=== PATIENT | male | born 1945 | race Caucasian/White ===

== ENCOUNTER → 2017-04-30 | Outpatient (CLI) | payer OTHER ==
[~2017-04-30] MED LIST: ACET-1256 PO; ASPI81TA28 PO; CALCIUM MAG VIT D PO; METO25TA3 PO; MULT-506 PO; OMEG10007 PO; VITA1CAP4 PO
[2017-04-30 14:39] VITALS: BP 112/73; PULSE 57; TEMP 36.8; O2SAT 96
--- NOTE | 2017-04-30 16:03 | Radiation Oncology Follow-Up ---
Radiation Oncology Follow-Up Date of Visit Apr 30, 2017. Reason For Visit One-month follow-up in cancer survivorship care plan Radiation Completion Date 03/21/18 Diagnosis (1) Prostate cancer Status: Acute Onset Date: 08/19/2015 Location: both lobes of the prostate Histology Subtype: adenocarcinoma Stage: ll Permanent Comment: Rising PSA with a benign biopsy 06/12/2004 Rising PSA, pretreatment PSA, 7.75 Status post ultrasound-guided biopsies 08/19/2015 Adenocarcinoma of the prostate Na 3+3 and 3+4 Status post robotic-assisted laparoscopic prostatectomy and lymph node biopsy [place] 4+3 with tertiary 5 pT2c pN0 M0 Post prostatectomy rising PSA to 0.07 on 11/14/2016 Status post completion of salvage radiation therapy 03/21/2017. He received 6840 cGy Last Edited By: Pamela Ely on Mar 29, 2017 14:47 History of Present Illness Mr. Bean has a history of transient PSAs. The patient did have an elevated PSA in 2004 which prompted a biopsy of the prostate gland on 06/13/2004 which was negative. More recently, the patient presented again with an elevated PSA of 10.6 on 06/13/2015. Dr. Glynn recommended a repeat transrectal ultrasound- guided biopsy of the prostate gland which revealed prostate adenocarcinoma Na 3+3 and Na 3+4 in 3/13 cores. The patient elected to undergo a radical prostatectomy with bilateral lymph node sampling by Dr. Spann on 2015. Pathology revealed prostatic ductal adenocarcinoma and acinar adenocarcinoma that was [place] 4+3 involving bilateral lobes (pT2c). The pathology revealed no evidence of extracapsular extension, seminal vesicle invasion were positive margins. There were was noted to be focal perineural invasion. 3 lymph nodes were resected in the right pelvis and left pelvis each and were negative for metastatic carcinoma. The patient did have a follow-up PSA that was 0.03 on 02/20/2016, 0.03 on 05/16/2016 and 0.07 on 11/14/2016. Dr. Glynn referred the patient to us for consideration of salvage radiation therapy. Currently, the patient in relatively well overall. He denies any urinary incontinence or any issues with the following surgery. His urinary IPSS score is 8/35. His EPIC QoL score is 4/60. He has used Viagra and is currently using Trimix injections for erections. He denies any blood per rectum or history of inflammatory bowel disease. No other complaints. He began hormonal suppression. Salvage radiation therapy was then added. Radiation was completed 03/21/2017. He received 6840 cGy Interim History He's been doing well over this past month in regards to his urinary status. Today given AUA score 10. At the end of treatment he had an AUA score of 8. He continues on hormone suppression. A plan was for 12 months. He completed and expanded prostate cancer index composite for clinical practice and gave a score of 0 of 12 and urinary incontinence symptoms. He gave a score of 2 of 12 and urinary irritation symptoms. He gave a score of 2 of 12 bowel symptoms. He gave a score of 4 of 12 sexual symptoms. He gave a score of one of 12 and hormonal vitality symptoms. His total was 9 of 60. Allergies Coded Allergies: No Known Allergies (Unverified , 12/06/16) Home Medications Scheduled Aspirin (Aspirin Ec), 81 MG PO BID Fish Oil (Blanchard-3), 350 MG PO DAILY Metoprolol Succ (Toprol Xl) (Toprol-Xl), 25 MG PO BID Multivitamin (Multivitamin), 1 TAB PO DAILY Vitamin E (E 1000), 1 CAP PO DAILY [[id number] D], 1 TAB PO DAILY Scheduled PRN Acetaminophen (Tylenol), 2 TAB PO Q6 PRN for Moderate Pain Review of Systems Gastrointestinal: Symptoms: WNL GI Comments: has 4 BM s a day and gas Oral: Symptoms: No Problems Respiratory: Symptoms: WNL Urinary: Symptoms: Frequency Comments: every 2 hr, some urgency Skin: Symptoms: No Problems Physical Exam Vital Signs Date Time Temp Pulse Resp B/P (MAP) Pulse Ox O2 Delivery O2 Flow Rate FiO2 04/30/17 14:39 36.8 57 18 112/73 96 Fatigue: None General Appearance: no apparent distress Eyes: normal inspection, EOMI ENT: normal ENT inspection, hearing grossly normal Respiratory/Chest: lungs clear, no respiratory distress, no accessory muscle use Cardiovascular: regular rate, rhythm, no gallop, no murmur Abdomen: non tender, soft Extremities: no pedal edema Neurologic/Psychiatric: no motor/sensory deficits, alert, normal mood/affect Pain Management Patient Reports Pain: No Pain Location: None Patient Preferred Pain Scale: 0 - 10 Initial Pain Intensity: 0.0 Pain Management Plan He denied pain therefore requires no pain management. Laboratory Laboratory Results: pending Pathology Pathology Results: not applicable Imaging Imaging Studies: not applicable Assessment & Plan Plan: He was also seen today by Dr. Sharma. A PSA was drawn. He'll be notified as to results. We completed a cancer survivorship care plan. A copy of the document was given to the patient. He was given a survivorship booklet. He'll continue follow-up with his primary care physician and Dr. Glynn. We asked him to return to our office in 6 months. He will call if he has any questions or concerns in the interim. Assessment & Plan (Attending) ADDENDUM: I agree with note created by Pamela Ely PA-C. I reviewed the patient's chart and information with her. I have examined and evaluated the patient. I reviewed relevant clinical information and answered the patient's and /or family's questions. CONSULTING UTILITY FORESTER Total Time In Follow-Up I spent 20 minutes speaking to the patient and performing examination. I spent 20 minutes reviewing information, preparing the survivorship document, and completing this note. [place] Total Time (Attending) In Follow-Up I spent 15 minutes examining and counseling the patient. CONSULTING UTILITY FORESTER Copy To Florin Serrano M.D.; Gudelia Glynn MD
== END | disposition home or self-care (01) ==
LOC: C.ONC 14:29
PROVIDERS: ATTEND Physician Assistant Medical
DX: Z08 Encounter for follow-up examination after completed treatment for malignant neoplasm (principal); Z92.3 Personal history of irradiation; Z85.46 Personal history of malignant neoplasm of prostate

== ENCOUNTER 2020-09-01 16:59 | Inpatient (IN) ==
--- NOTE | 2020-09-01 17:37 | Emergency Department Note ---
Impression & Plan Dizziness, Atrial flutter ED Provider Note NAME: KAREN WALTER AGE: 75 SEX: M : 1945 ARRIVES VIA: Walk-In INFORMANT: Patient, ED PROVIDER(S): Sujit Barnett MD CHIEF COMPLAINT: Abnormal EKG HPI: This 75-year-old male sent in by his primary care physician over concerns about an abnormal EKG. The patient reports he has felt dizzy for the past 2 to 3 weeks. He reports anytime he stands up and moves that the dizziness follows. He reports a history of being diagnosed with atrial fibrillation last February. He was placed on apixaban for the atrial fibrillation which he has not missed any doses of. He denies any true chest pain or shortness of breath. He reports movement makes the dizziness worse nothing seems to make the dizziness better. He has not taken anything for the dizziness. ROS: See above HPI for pertinent positives & negatives. A total of 10 systems reviewed and were otherwise negative. PAST MEDICAL HISTORY: See Below PAST SURGICAL HISTORY: See Below FAMILY HISTORY: See Below SOCIAL HISTORY: See Below HOME MEDICATIONS: See Below ALLERGIES: See Below VITALS: See Below PHYSICAL EXAMINATION: VITAL SIGNS - Vital signs and nursing notes were reviewed. GENERAL - 75-year-old male appearing stated age who is in no acute distress. Communicates well with provider and answers questions appropriately. SKIN - Without rashes. HEAD - NC/AT. EYES - PERRL with EOMI bilaterally. Sclera anicteric. Palpebral conjunctiva pink and moist with no injection noted. EARS - No deformities of external structures noted on gross examination bilaterally. NOSE - Midline and without cyanosis. No epistaxis or purulent drainage noted. Septum midline without deviation or septal hematoma noted. MOUTH/OROPHARYNX - Without perioral cyanosis. Buccal mucosa pink and moist and without leukoplakia. Tongue midline with equal elevation of palate bilaterally. No tonsillar hypertrophy, erythema, or exudates noted. NECK - Neck with FROM. Supple to palpation. No nuchal rigidity. LUNGS - Chest wall symmetric without accessory muscle use, intercostals retractions, or central cyanosis. Normal vesicular breath sounds CTA B/L. No wheezes, rales, or rhonchi appreciated. CARDIAC - RRR with S1/S2. No murmur, rubs, or gallops appreciated. ABDOMEN - Abdominal contour without pulsations or visible masses. BS normoactive all four quadrants. No tenderness, palpable masses, hepatosplenomegaly, or ascites noted. EXTREMITIES - No clubbing or peripheral cyanosis. No pretibial edema present. +3/5 radial, posterior tibial, and dorsalis pedis pulses palpated throughout. +5/5 strength noted in UE/LE bilaterally. NEUROLOGIC - Cranial nerves II through XII grossly intact. Sensory intact to light touch throughout. Patellar reflexes +2/4. PSYCH - A&Ox3 and cooperates fully with examiner. Pt is very pleasant and interacts well with examiner. MEDICAL DECISION MAKING: Patient was seen and evaluated as above in room C2. Review was performed of nursing notes and vital signs. I did review pertinent previous visits and patient history. After obtaining a thorough history and physical examination the above work up was performed. This 75-year-old male who presents emergency department complaining of what appears to be a new onset atrial flutter along with dizziness. The patient denies any chest pain or shortness of breath however his troponin is elevated. Based on this I did discuss the case with the hospitalist service who did agree to meet the patient. Patient is in agreement with treatment plan. An order was placed for continuous cardiac monitoring. The monitor shows a rate of 57 with A flutter rhythm. The patient was evaluated during a period of high volume and high acuity during the global COVID-19 pandemic, and that diagnosis was suspected/considered upon their initial presentation. Their evaluation, treatment and testing was consis tent with current guidelines for patients who present with complaints or symptoms that may be related to COVID-19. Patient was seen while provider was wearing PPE. Triage Nursing notes reviewed. Prior medical records reviewed Vital Signs: reviewed and remarkable for no significant abnormalities Differential diagnosis: Cardiac ischemia, aortic dissection, pulmonary embolism, pneumothorax, pneumonia, pericarditis, myocarditis, esophageal rupture, GERD, cholecystitis, pancreatitis, musculoskeletal, as well as other pathologies. ER treatment provided: See below Diagnostics interpreted by me: ECG: EKG shows atrial flutter T wave abnormality in the inferior leads T wave inversions in the anterolateral leads. QTC is 440 ventricular rate of 61 EKG is compared to 02/23/2020 and a flutter has replaced sinus rhythm. Laboratory studies: As stated above and show below. 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), no residual issues 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 Surgical History H/O shoulder surgery LEFT History of cardiac cath 1986 History of colonoscopy History of cystoscopy History of prostatectomy History of tooth extraction Hx of vasectomy [place] teeth removed Family History Grandfather (Maternal) Family hx of colon cancer Other No family history of adverse response to anesthesia Social History Smoking Status: Never smoker Second Hand Exposure: No; Hx Alcohol Use: Yes Alcohol type: hard liquor Hx Substance Use: No Preferred Language: [place] Communication Ability: Effective 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 Beliefs That Will Affect Care: None Current Living Situation: Alone Other Information That Helps Us Care for You: No Feels Safe at Home: Yes Safety Concerns: Feels Safe At This Time Assistive Devices: Glasses and Hearing Aid - Bilateral Allergies Allergies Allergy/AdvReac Type Severity Reaction Status Date / Time No Known Allergies Allergy Verified 09/01/20 17:19 Home Meds Home Medications Medication Instructions Recorded Confirmed Eliquis 5 mg PO BID 02/23/20 09/01/20 atorvastatin 20 mg PO QAM 02/23/20 09/01/20 calcium citrate 200 mg PO QAM 02/23/20 09/01/20 docusate sodium 100 mg PO QAM 02/23/20 09/01/20 folic acid 2 mg PO QAM 02/23/20 09/01/20 metoprolol succinate [Toprol XL] 50 mg PO QAM 02/23/20 09/01/20 multivitamin 1 tab PO QAM 02/23/20 09/01/20 omeprazole 20 mg PO BID 02/23/20 09/01/20 fiber 2 tab PO QAM 03/17/20 09/01/20 magnesium oxide 400 mg PO QAM 03/17/20 09/01/20 lisinopril 5 mg PO DAILY 09/01/20 09/01/20 oxybutynin chloride 10 mg PO DAILY 09/01/20 09/01/20 Results & Data (ED) Vital Signs Vital Signs - 24 hr 09/01/20 17:02 09/01/20 18:13 09/01/20 18:16 Temperature 36.3 C L Temperature Source Temporal Artery Scan Pulse Rate - Lying Pulse Rate - Sitting Pulse Rate - Standing Pulse Rate 66 56 L 61 Pulse Rate from SpO2 Sensor 55 L 58 L Pulse Rhythm Respiratory Rate 18 20 16 Blood Pressure - Lying Blood Pressure - Sitting Blood Pressure- Standing Blood Pressure 160/88 H 145/83 H Blood Pressure Mean 112 103 Pulse Oximetry 95 96 95 Oxygen Delivery Method Room Air Sepsis Recent Fever Within 48 Hours No Sepsis New/Unexplained Change in Mental Status N/A Sepsis Action Taken by Nursing No Action Required 09/01/20 18:20 09/01/20 18:28 09/01/20 18:29 Temperature Temperature Source Pulse Rate - Lying 58 L Pulse Rate - Sitting 65 Pulse Rate - Standing 64 Pulse Rate 61 58 L 58 L Pulse Rate from SpO2 Sensor 61 56 L Pulse Rhythm Regular Respiratory Rate 17 16 20 Blood Pressure - Lying 147/81 H Blood Pressure - Sitting 147/84 H Blood Pressure- Standing 133/105 H Blood Pressure 147/81 H Blood Pressure Mean 103 Pulse Oximetry 96 96 95 Oxygen Delivery Method Room Air Sepsis Recent Fever Within 48 Hours Sepsis New/Unexplained Change in Mental Status Sepsis Action Taken by Nursing 09/01/20 18:30 09/01/20 18:31 09/01/20 19:00 Temperature Temperature Source Pulse Rate - Lying Pulse Rate - Sitting Pulse Rate - Standing Pulse Rate 56 L 58 L 49 L Pulse Rate from SpO2 Sensor 62 60 53 L Pulse Rhythm Respiratory Rate 15 20 17 Blood Pressure - Lying Blood Pressure - Sitting Blood Pressure- Standing Blood Pressure 147/84 H 133/105 H 146/71 H Blood Pressure Mean 105 114 96 Pulse Oximetry 96 97 95 Oxygen Delivery Method Sepsis Recent Fever Within 48 Hours Sepsis New/Unexplained Change in Mental Status Sepsis Action Taken by Nursing 09/01/20 19:30 Temperature Temperature Source Pulse Rate - Lying Pulse Rate - Sitting Pulse Rate - Standing Pulse Rate Pulse Rate from SpO2 Sensor 65 Pulse Rhythm Respiratory Rate Blood Pressure - Lying Blood Pressure - Sitting Blood Pressure- Standing Blood Pressure Blood Pressure Mean Pulse Oximetry 96 Oxygen Delivery Method Sepsis Recent Fever Within 48 Hours Sepsis New/Unexplained Change in Mental Status Sepsis Action Taken by Nursing Laboratory Data Result diagrams: 09/01/20 18:28 09/01/20 18:28 Lab Results 09/01/20 09/01/20 09/01/20 Range/Units 18:28 18:28 18:28 WBC 5.89 (4.8-10.8) K/uL RBC 4.11 L (4.7-6.1) M/uL Hgb 13.2 L (14.0-18.0) g/dL Hct 38.9 L (42-52) % MCV 94.6 (80-100) fL MCH 32.1 (25-34) pg MCHC 33.9 (32-36) g/dL RDW Std Deviation 48.8 H (36.4-46.3) fL RDW Coeff of Tip 14.1 (11.5-14.5) % Plt Count 152 (130-400) K/uL MPV 9.8 (7.4-10.4) fL Immature Gran % (Auto) 0.2 % Neut % (Auto) 63.9 % Lymph % (Auto) 22.1 % [place] % (Auto) 12.1 % Eos % (Auto) 1.5 % Baso % (Auto) 0.2 % Neut # (Auto) 3.77 (1.4-6.5) K/uL Lymph # (Auto) 1.30 (1.2-3.4) K/uL [place] # (Auto) 0.71 H (0.11-0.59) K/uL Eos # (Auto) 0.09 (0-0.5) K/uL Baso # (Auto) 0.01 (0-0.2) K/uL Immature Gran # (Auto) 0.01 (0.00-0.02) K/uL PT 11.0 (9.0-12.0) Seconds INR 1.1 (0.9-1.1) APTT 27.8 (21.0-31.0) Seconds PTT Ratio 1.1 Sodium 138 (136-145) mmol/L Potassium 4.2 (3.5-5.1) mmol/L Chloride 108 H (98-107) mmol/L Carbon Dioxide 24 (21-32) mmol/L Anion Gap 6.0 (3-11) BUN 21 H (7-18) mg/dl Creatinine 1.10 (0.6-1.4) mg/dl Est Cr Clr Drug Dosing 62.7 ml/min Est GFR ( Amer) 75.2 ml/min Est GFR (Non-Af Amer) 64.9 ml/min BUN/Creatinine Ratio 19.5 (10-20) Glucose 87 (70-99) mg/dl Calcium 9.0 (8.5-10.1) mg/dl Magnesium (1.8-2.4) mg/dl Total Bilirubin 0.8 (0.2-1) mg/dl AST 66 H (15-37) U/L ALT 119 H (12-78) U/L Alkaline Phosphatase 64 (45-117) U/L Total Creatine Kinase 75 (39-308) U/L CK-MB (CK-2) 2.5 (0.5-3.6) ng/ml CK/CKMB % Calc 3.3 H (0-3.0) Troponin I 0.447 H* (0-0.045) ng/ml Total Protein 6.2 L (6.4-8.2) gm/dl Albumin 3.6 (3.4-5.0) gm/dl Globulin 2.6 (2.5-4.0) gm/dl Albumin/Globulin Ratio 1.4 (0.9-2) Lipase 81 (73-393) U/L TSH (0.300-4.500) uIu/ml Lyme Disease IgG Ab (Negative) Lyme Disease IgM Ab (Negative) COVID-19 Eval Order SARS-CoV-2 (PCR) (Negative) 09/01/20 09/01/20 09/01/20 Range/Units 18:28 18:33 18:33 WBC (4.8-10.8) K/uL RBC (4.7-6.1) M/uL Hgb (14.0-18.0) g/dL Hct (42-52) % MCV (80-100) fL MCH (25-34) pg MCHC (32-36) g/dL RDW Std Deviation (36.4-46.3) fL RDW Coeff of Tip (11.5-14.5) % Plt Count (130-400) K/uL MPV (7.4-10.4) fL Immature Gran % (Auto) % Neut % (Auto) % Lymph % (Auto) % [place] % (Auto) % Eos % (Auto) % Baso % (Auto) % Neut # (Auto) (1.4-6.5) K/uL Lymph # (Auto) (1.2-3.4) K/uL [place] # (Auto) (0.11-0.59) K/uL Eos # (Auto) (0-0.5) K/uL Baso # (Auto) (0-0.2) K/uL Immature Gran # (Auto) (0.00-0.02) K/uL PT (9.0-12.0) Seconds INR (0.9-1.1) APTT (21.0-31.0) Seconds PTT Ratio Sodium (136-145) mmol/L Potassium (3.5-5.1) mmol/L Chloride (98-107) mmol/L Carbon Dioxide (21-32) mmol/L Anion Gap (3-11) BUN (7-18) mg/dl Creatinine (0.6-1.4) mg/dl Est Cr Clr Drug Dosing ml/min Est GFR ( Amer) ml/min Est GFR (Non-Af Amer) ml/min BUN/Creatinine Ratio (10-20) Glucose (70-99) mg/dl Calcium (8.5-10.1) mg/dl Magnesium 2.1 (1.8-2.4) mg/dl Total Bilirubin (0.2-1) mg/dl AST (15-37) U/L ALT (12-78) U/L Alkaline Phosphatase (45-117) U/L Total Creatine Kinase (39-308) U/L CK-MB (CK-2) (0.5-3.6) ng/ml CK/CKMB % Calc (0-3.0) Troponin I (0-0.045) ng/ml Total Protein (6.4-8.2) gm/dl Albumin (3.4-5.0) gm/dl Globulin (2.5-4.0) gm/dl Albumin/Globulin Ratio (0.9-2) Lipase (73-393) U/L TSH 1.800 (0.300-4.500) uIu/ml Lyme Disease IgG Ab (Negative) Lyme Disease IgM Ab (Negative) COVID-19 Eval Order Covid19 at [facility] SARS-CoV-2 (PCR) NEGATIVE (Negative) 09/01/20 Range/Units 20:05 WBC (4.8-10.8) K/uL RBC (4.7-6.1) M/uL Hgb (14.0-18.0) g/dL Hct (42-52) % MCV (80-100) fL MCH (25-34) pg MCHC (32-36) g/dL RDW Std Deviation (36.4-46.3) fL RDW Coeff of Tip (11.5-14.5) % Plt Count (130-400) K/uL MPV (7.4-10.4) fL Immature Gran % (Auto) % Neut % (Auto) % Lymph % (Auto) % [place] % (Auto) % Eos % (Auto) % Baso % (Auto) % Neut # (Auto) (1.4-6.5) K/uL Lymph # (Auto) (1.2-3.4) K/uL [place] # (Auto) (0.11-0.59) K/uL Eos # (Auto) (0-0.5) K/uL Baso # (Auto) (0-0.2) K/uL Immature Gran # (Auto) (0.00-0.02) K/uL PT (9.0-12.0) Seconds INR (0.9-1.1) APTT (21.0-31.0) Seconds PTT Ratio Sodium (136-145) mmol/L Potassium (3.5-5.1) mmol/L Chloride (98-107) mmol/L Carbon Dioxide (21-32) mmol/L Anion Gap (3-11) BUN (7-18) mg/dl Creatinine (0.6-1.4) mg/dl Est Cr Clr Drug Dosing ml/min Est GFR ( Amer) ml/min Est GFR (Non-Af Amer) ml/min BUN/Creatinine Ratio (10-20) Glucose (70-99) mg/dl Calcium (8.5-10.1) mg/dl Magnesium (1.8-2.4) mg/dl Total Bilirubin (0.2-1) mg/dl AST (15-37) U/L ALT (12-78) U/L Alkaline Phosphatase (45-117) U/L Total Creatine Kinase (39-308) U/L CK-MB (CK-2) (0.5-3.6) ng/ml CK/CKMB % Calc (0-3.0) Troponin I (0-0.045) ng/ml Total Protein (6.4-8.2) gm/dl Albumin (3.4-5.0) gm/dl Globulin (2.5-4.0) gm/dl Albumin/Globulin Ratio (0.9-2) Lipase (73-393) U/L TSH (0.300-4.500) uIu/ml Lyme Disease IgG Ab Negative (Negative) Lyme Disease IgM Ab Negative (Negative) COVID-19 Eval Order SARS-CoV-2 (PCR) (Negative) Imaging Data Radiologist's Impression: Chest X-Ray 09/01/20 17:34 XR chest 1V portable HISTORY: 75 years-old Male Chest Pain acute atypical chest pain COMPARISON: Chest radiograph 03/21/2020 TECHNIQUE: Portable AP view of the chest FINDINGS: Cardiac silhouette is enlarged. Single lead left subclavian pacer/AICD. No pneumothorax, pleural effusion, airspace consolidation or overt pulmonary edema. Left shoulder total joint arthroplasty. Degenerative changes of the spine and right shoulder. IMPRESSION: No acute process. ACT 112: Negative or not required by law. The above report was generated using voice recognition software. It may contain grammatical, syntax or spelling errors. Electronically signed by: Car Riddle M.D. 09/01/2020 5:52 PM Discharge Plan Visit Data Chief Complaint: Cardiac Assessment Stated Complaint: IRREGULAR HEART BEAT- DOC REF ED Provider: Sujit Barnett Discharge Problem: Dizziness, Atrial flutter Patient Disposition: Admitted As Inpatient Discharge Instructions Interventions: ED Discharge Assessment Last Done: 09/01/20 21:58 Discharge Problem: Atrial flutter Qualifiers: Atrial flutter type: typical Qualified Code(s): I48.3 - Typical atrial flutter
--- NOTE | 2020-09-01 17:53 | XRay Report ---
XR chest 1V portable HISTORY: 75 years-old Male Chest Pain acute atypical chest pain COMPARISON: Chest radiograph 03/21/2020 TECHNIQUE: Portable AP view of the chest FINDINGS: Cardiac silhouette is enlarged. Single lead left subclavian pacer/AICD. No pneumothorax, pleural effu tyson, airspace consolidation or overt pulmonary edema. Left shoulder total joint arthroplasty. Degene rative changes of the spine and right shoulder. IMPRESSION: No acute process. ACT 112: Negative or not required by law. The above report was generated using voice recognition software. It may contain grammatical, syntax o r spelling errors. Electronically signed by: Car Riddle M.D. 09/01/2020 5:52 PM
[2020-09-01 18:37] LABS: Basophils # (auto) 0.01 K/uL (0-0.2); Basophils % (auto) 0.2 %; Eosinophils # (auto) 0.09 K/uL (0-0.5); Eosinophils % (auto) 1.5 %; Hematocrit (blood only) 38.9 % (42-52); Hemoglobin 13.2 g/dL (14.0-18.0); Immature Granulocytes # (auto) 0.01 K/uL (0.00-0.02); Immature Granulocytes % (auto) 0.2 %; Lymphocytes % (auto) 22.1 %; Mean Corpuscular Hemoglobin 32.1 pg (25-34); Mean Corpuscular Hgb Conc 33.9 g/dL (32-36); Mean Corpuscular Volume 94.6 fL (80-100); Mean Platelet Volume 9.8 fL (7.4-10.4); Monocytes # (auto) 0.71 K/uL (0.11-0.59); Monocytes % (auto) 12.1 %; Neutrophils # (auto) 3.77 K/uL (1.4-6.5); Neutrophils % (auto) 63.9 %; Platelet Count 152 K/uL (130-400); RDW Coefficient of Variation 14.1 % (11.5-14.5); RDW Standard Deviation 48.8 fL (36.4-46.3); Red Blood Count 4.11 M/uL (4.7-6.1); White Blood Count 5.89 K/uL (4.8-10.8)
[2020-09-01 18:49] LABS: INR 1.1 (0.9-1.1); Partial Thromboplastin Ratio 1.1; Partial Thromboplastin Time 27.8 Seconds (21.0-31.0)
[2020-09-01 18:54] LABS: Albumin Level 3.6 gm/dl (3.4-5.0); BUN Creatinine Ratio 19.5 (10-20); Creatinine Clr Calc Pharmacy 62.7 ml/min; Est GFR (African American) 75.2 ml/min; Est GFR (Non-African American) 64.9 ml/min; Potassium 4.2 mmol/L (3.5-5.1)
[2020-09-01 19:04] LABS: Albumin Globulin Ratio 1.4 (0.9-2); Bilirubin,Total 0.8 mg/dl (0.2-1); Creatine Kinase MB 2.5 ng/ml (0.5-3.6); Globulin 2.6 gm/dl (2.5-4.0); Total Protein 6.2 gm/dl (6.4-8.2); Troponin I 0.447 ng/ml (0-0.045)
--- NOTE | 2020-09-01 20:09 | History & Physical Report ---
Date of Service September 01, 2020 Assessment & Plan (1) Lightheadedness: With fatigue symptoms ? Secondary to symptomatic slow A. fib, hx PAF on Eliquis Rule out tickborne infection given abnormal LFTs Orthostatic vitals done at the ER were negative Troponin elevation possibly from elevated BP upon arrival at the ER history of hypertrophic nonobstructive cardiomyopathy history NSVT, hx prophylactic ICD hyperlipidemia on statin Rx moderate mitral regurgitation history thromboembolic CVA prostate cancer status post surgery/radiation chronic anemia, hemoglobin at baseline past tobacco abuse OBS PCU Hold beta-alejandro for now ICD interrogation Cardiology consult Re: Recurrent A. fib, bradycardia Follow troponin TTE if with progression Titrate lisinopril while beta-alejandro on hold for BP control Tickborne illness panel Follow LFTs, liver ultrasound if with progression DVT prophylaxis. Eliquis Full code Text document was generated using Vend[employer]ize voice recognition software. It may contain grammatical or spelling errors. Kindly contact undersigned for clarification of any documentation item in question. History of Present Illness Chief Complaint: Lightheadedness, weakness Primary Care Provider: Chucky Kim DO History obtained from patient and records. Medical history significant for PAF on Eliquis, history of hypertrophic nonobstructive cardiomyopathy, history NSVT, hx prophylactic ICD, hypertension, hyperlipidemia, moderate MR, history thromboembolic CVA, prostate cancer status post surgery/radiation, chronic anemia (baseline hemoglobin 13), past tobacco abuse. Last confinement [facility] January 2020 acute right frontoparietal embolic stroke presenting as transient left facial droop and dysarthria. No TPA, no vascular intervention required for stroke. Transient A. fib noted during confinement. Patient discharged on Eliquis. 8 months history of intermittent episodes of lightheadedness which patient thinks might be related to movement. About 2 episodes per month as per patient. Occasional generalized weakness. Denies depression. Denies chest pain, cough, palpitations, shortness of breath, abdominal pain, fluid retention. No spinning sensation, no headache. Patient has to stand steady initially on getting up for fear of falling. Ticks where patient lives although patient does not recall recent tick bites. The last 2 weeks patient noted almost daily symptoms of lightheadedness and generalized weakness. No recent changes in medication regimen as per patient. No recent COVID-19 contacts. Patient seen at PCP's office today. Cardiac rate 50s. EKG showed A. fib with slow ventricular response with T wave abnormalities inferior and anterior leads as per documentation. Patient sent to the ER for evaluation. Initial SBP upon arrival at the ER 160s. Medical History as above Surgical History : Hemorrhoidectomy, ICD, prostatectomy with pelvic lymphadenectomy, shoulder surgery Family History : Colon cancer, heart disease, stroke Personal/Social history : Past tobacco abuse, daily alcohol intake (denies abuse), retired from [employer] service Allergies Allergy/AdvReac Type Severity Reaction Status Date / Time No Known Allergies Allergy Verified 09/01/20 17:19 Home Medications Medication Instructions Recorded Confirmed Type Eliquis 5 mg PO BID 02/23/20 09/01/20 History atorvastatin 20 mg PO QAM 02/23/20 09/01/20 History calcium citrate 200 mg PO QAM 02/23/20 09/01/20 History docusate sodium 100 mg PO QAM 02/23/20 09/01/20 History folic acid 2 mg PO QAM 02/23/20 09/01/20 History metoprolol succinate [Toprol XL] 50 mg PO QAM 02/23/20 09/01/20 History multivitamin 1 tab PO QAM 02/23/20 09/01/20 History omeprazole 20 mg PO BID 02/23/20 09/01/20 History fiber 2 tab PO QAM 03/17/20 09/01/20 History magnesium oxide 400 mg PO QAM 03/17/20 09/01/20 History lisinopril 5 mg PO DAILY 09/01/20 09/01/20 History oxybutynin chloride 10 mg PO DAILY 09/01/20 09/01/20 History Past Med/Surg History Medical History Atrial fibrillation paroxysmal, new diagnosis (reason for Eliquis) CKD (chronic kidney disease) stage III Diverticulitis Hematuria History of prostate cancer s/p surgery/xrt (2018) Hyperlipidemia Hypertension Hypertrophic cardiomegaly hypertrophic non-obstructive cardiomyopathy ICD (implantable cardioverter-defibrillator) in place ICD/PPM, implanted 2018, [employer], last check 01/06/20 Mitral regurgitation moderate to severe MR per 02/06/20 echo Stroke 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), no residual issues 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 Surgical History H/O shoulder surgery LEFT History of cardiac cath 1987 History of colonoscopy History of cystoscopy History of prostatectomy History of tooth extraction Hx of vasectomy [place] teeth removed Family History Grandfather (Maternal) Family hx of colon cancer Other No family history of adverse response to anesthesia Social History Smoking Status: Never smoker Second Hand Exposure: No; Hx Alcohol Use: Yes Alcohol type: hard liquor Hx Substance Use: No Preferred Language: Azeri Communication Ability: Effective Traffic Circuit Engineer Required: No Beliefs That Will Affect Care: None Current Living Situation: Alone Other Information That Helps Us Care for You: No Feels Safe at Home: Yes Safety Concerns: Feels Safe At This Time Assistive Devices: Glasses and Hearing Aid - Bilateral Review of Systems Review of Systems: As per HPI, all 10 systems reviewed, all other ROS negative Physical Exam Physical Exam: GENERAL: Comfortable, pleasant, no respiratory distress SKIN: Normal color, warm HEENT: [place] palpebral conjunctivae, no ptosis, dry buccal mucosa NECK : Supple, no tenderness CHEST : CTA, no tenderness HEART : Bradycardic, no obvious murmurs ABDOMEN: No distention, nontender EXTREMITIES : No LE swelling/tenderness, no other conspicuous deformities noted NEUROLOGIC : Coherent, no facial asymmetry, no other gross focality Results & Data Results & Data ([facility]) Vital Signs (Past 12 Hours) Vital Signs Temp Pulse Resp BP Pulse Ox 09/01/20 19:00 49 L 17 146/71 H 95 09/01/20 18:31 58 L 20 133/105 H 97 09/01/20 18:30 56 L 15 147/84 H 96 09/01/20 18:29 58 L 20 147/81 H 95 09/01/20 18:28 58 L 16 96 09/01/20 18:20 61 17 96 09/01/20 18:16 61 16 95 09/01/20 18:13 56 L 20 145/83 H 96 09/01/20 17:02 36.3 C L 66 18 160/88 H 95 Laboratory Results Laboratory Results WBC 5.89 K/uL (4.8-10.8) 09/01/20 18:28 RBC 4.11 M/uL (4.7-6.1) L 09/01/20 18: Hgb 13.2 g/dL (14.0-18.0) L 09/01/20 18: Hct 38.9 % (42-52) L 09/01/20 18: MCV 94.6 fL (80-100) 09/01/20 18: MCH 32.1 pg (25-34) 09/01/20 18: MCHC 33.9 g/dL (32-36) 09/01/20 18: RDW Std Deviation 48.8 fL (36.4-46.3) H 09/01/20 18: RDW Coeff of Tip 14.1 % (11.5-14.5) 09/01/20 Plt Count 152 K/uL (130-400) 09/01/20 18: MPV 9.8 fL (7.4-10.4) 09/01/20 18: Immature Gran % (Auto) 0.2 % 09/01/20 18: Neut % (Auto) 63.9 % 09/01/20 18: Lymph % (Auto) 22.1 % 09/01/20 18: [place] % (Auto) 12.1 % 09/01/20 18: Eos % (Auto) 1.5 % 09/01/20 18: Baso % (Auto) 0.2 % 09/01/20 18: Neut # (Auto) 3.77 K/uL (1.4-6.5) 09/01/20 18: Lymph # (Auto) 1.30 K/uL (1.2-3.4) 09/01/20 18: [place] # (Auto) 0.71 K/uL (0.11-0.59) H 09/01/20 18: Eos # (Auto) 0.09 K/uL (0-0.5) 09/01/20 18: Baso # (Auto) 0.01 K/uL (0-0.2) 09/01/20 18: Immature Gran # (Auto) 0.01 K/uL (0.00-0.02) 09/01/20 18: PT 11.0 Seconds (9.0-12.0) 09/01/20 18: INR 1.1 (0.9-1.1) 09/01/20 18: APTT 27.8 Seconds (21.0-31.0) 09/01/20 18: PTT Ratio 1.1 09/01/20 18: Sodium 138 mmol/L (136-145) 09/01/20 18: Potassium 4.2 mmol/L (3.5-5.1) 09/01/20 18: Chloride 108 mmol/L (98-107) H 09/01/20 18: Carbon Dioxide 24 mmol/L (21-32) 09/01/20 18: Anion Gap 6.0 (3-11) 09/01/20 18: BUN 21 mg/dl (7-18) H 09/01/20 18: Creatinine 1.10 mg/dl (0.6-1.4) 09/01/20 18: Est Cr Clr Drug Dosing 62.7 ml/min 09/01/20 18: Est GFR ( Amer) 75.2 ml/min 09/01/20 18: Est GFR (Non-Af Amer) 64.9 ml/min 09/01/20 18: BUN/Creatinine Ratio 19.5 (10-20) 09/01/20 18: Glucose 87 mg/dl (70-99) 09/01/20 18: Calcium 9.0 mg/dl (8.5-10.1) 09/01/20 18: Total Bilirubin 0.8 mg/dl (0.2-1) 09/01/20 18: AST 66 U/L (15-37) H 09/01/20 18:28 ALT 119 U/L (12-78) H 09/01/20 18:28 Alkaline Phosphatase 64 U/L (45-117) 09/01/20 18: Total Creatine Kinase 75 U/L (39-308) 09/01/20 18: CK-MB (CK-2) 2.5 ng/ml (0.5-3.6) 09/01/20 18: CK/CKMB % Calc 3.3 (0-3.0) H 09/01/20 18: Troponin I 0.447 ng/ml (0-0.045) H* 09/01/20 18:28 Total Protein 6.2 gm/dl (6.4-8.2) L 09/01/20 18:28 Albumin 3.6 gm/dl (3.4-5.0) 09/01/20 18:28 Globulin 2.6 gm/dl (2.5-4.0) 09/01/20 18:28 Albumin/Globulin Ratio 1.4 (0.9-2) 09/01/20 18:28 Lipase 81 U/L (73-393) 09/01/20 18:28 COVID-19 Eval Order Covid19 at [facility] 09/01/20 18:33 SARS-CoV-2 (PCR) NEGATIVE (Negative) 09/01/20 18:33 Impressions Chest X-Ray 09/01/20 17:34 XR chest 1V portable HISTORY: 75 years-old Male Chest Pain acute atypical chest pain COMPARISON: Chest radiograph 03/21/2020 TECHNIQUE: Portable AP view of the chest FINDINGS: Cardiac silhouette is enlarged. Single lead left subclavian pacer/AICD. No pneumothorax, pleural effusion, airspace consolidation or overt pulmonary edema. Left shoulder total joint arthroplasty. Degenerative changes of the spine and right shoulder. IMPRESSION: No acute process. ACT 112: Negative or not required by law. The above report was generated using voice recognition software. It may contain grammatical, syntax or spelling errors. Electronically signed by: Car Riddle M.D. 09/01/2020 5:52 PM Diagnostic Findings EKG as per my interpretation rate 60, A. fib, normal axis, T wave abnormalities inferior and anterolateral leads
[2020-09-01 20:39] LABS: Magnesium 2.1 mg/dl (1.8-2.4); Thyroid Stimulating Hormone 1.8 uIu/ml (0.300-4.500)
[2020-09-01] MEDS ORDERED: ACETAMINOPHEN 325 MG TAB PO PRN (20:47)
[2020-09-01 21:05] LABS: Lyme Ab IgG w/WB Rflx Negative (Negative); Lyme Ab IgM w/WB Rflx Negative (Negative)
[2020-09-01] MEDS ORDERED: SODIUM CHLORIDE 0.9% 1000ML 1,000 ML IV ONE (22:37)
[2020-09-01] MEDS ORDERED: oxyCODONE HCL IR 5 MG TAB (IMMEDIATE RELEASE) PO PRN (22:37)
[2020-09-01] MEDS ORDERED: PROMETHAZINE HCL 12.5 MG in SODIUM CHLORIDE 0.9% 50 ML IV PRN (22:37)
[2020-09-02 06:37] LABS: Basophils # (auto) 0.01 K/uL (0-0.2); Basophils % (auto) 0.2 %; Eosinophils # (auto) 0.15 K/uL (0-0.5); Eosinophils % (auto) 3.2 %; Hematocrit (blood only) 37.7 % (42-52); Hemoglobin 12.7 g/dL (14.0-18.0); Immature Granulocytes # (auto) 0.01 K/uL (0.00-0.02); Immature Granulocytes % (auto) 0.2 %; Lymphocytes # (auto) 1.06 K/uL (1.2-3.4); Lymphocytes % (auto) 22.6 %; Mean Corpuscular Hemoglobin 32.1 pg (25-34); Mean Corpuscular Hgb Conc 33.7 g/dL (32-36); Mean Corpuscular Volume 95.2 fL (80-100); Monocytes # (auto) 0.61 K/uL (0.11-0.59); Neutrophils # (auto) 2.85 K/uL (1.4-6.5); Neutrophils % (auto) 60.8 %; Platelet Count 155 K/uL (130-400); RDW Coefficient of Variation 14.1 % (11.5-14.5); RDW Standard Deviation 49.2 fL (36.4-46.3); Red Blood Count 3.96 M/uL (4.7-6.1); White Blood Count 4.69 K/uL (4.8-10.8)
[2020-09-02 07:04] LABS: Albumin Level 3.3 gm/dl (3.4-5.0); BUN Creatinine Ratio 18.2 (10-20); Calcium 8.6 mg/dl (8.5-10.1); Creatinine Clr Calc Pharmacy 64.5 ml/min; Est GFR (African American) 77.7 ml/min; Est GFR (Non-African American) 67.1 ml/min; Potassium 3.9 mmol/L (3.5-5.1)
[2020-09-02 07:07] LABS: Albumin Globulin Ratio 1.4 (0.9-2); Globulin 2.4 gm/dl (2.5-4.0); Total Protein 5.7 gm/dl (6.4-8.2)
[2020-09-02] MEDS: DOCUSATE SODIUM 100 MG CAP PO SCH (08:05)
[2020-09-02] MEDS: FOLIC ACID 1 MG TAB PO SCH (08:05)
[2020-09-02] MEDS: lisinopril 5 MG TAB PO SCH (08:05)
[2020-09-02] MEDS: MULTIVITAMIN TAB PO SCH (08:05)
[2020-09-02] MEDS: OXYBUTYNIN CHLORIDE XL 5 MG TABCR PO SCH (08:05)
[2020-09-02] MEDS: PANTOprazole 40 MG TAB PO SCH ×3 (08:06→19:58)
[2020-09-02] MEDS: APIXABAN 5 MG TABLET PO SCH ×3 (08:06→19:58)
[2020-09-02] MEDS ORDERED: ATORVASTATIN 20 MG TAB PO SCH (09:00)
--- NOTE | 2020-09-02 10:40 | Cardiology Consultation ---
Date of Consultation September 02, 2020 Assessment & Plan (1) Lightheadedness: Patient is a 75-year-old male with known apical hypertrophic cardiomyopathy and paroxysmal atrial fibrillation. Pacemaker defibrillator interrogation today reveals patient having lapsed predominantly into atrial fibrillation beginning on August 15. Rates bradycardic at times. Device backup pacing rate was set at 40 bpm consistent with EKGs and telemetry Plan: Pacemaker defibrillator reprogrammed to VVIR mode at 50 bpm (single-lead device) We will treat paroxysmal atrial fibrillation with trial of antiarrhythmic therapy initiating sotalol during this stay. Amiodarone relatively contraindicated given mild LFT elevation currently. Consider synchronized electrical cardioversion depending on clinical course If sotalol is not tolerated or atrial fibrillation isma persistent would opt for rate control management Patient to remain fully anticoagulated with Eliquis Echocardiogram ordered reassess degree of mitral insufficiency and left atrial enlargement (2) Atrial fibrillation with slow ventricular response: Past paroxysmal atrial fibrillation now persistent since August 15. As above antiarrhythmic therapy initiated (3) Apical variant hypertrophic cardiomyopathy: (4) Elevated troponin: Chronic troponin elevation consistent with hypertrophic cardiomyopathy. No evidence suggest acute coronary syndrome History of Present Illness Reason for Consultation: Lightheadedness, atrial fibrillation Requesting Physician: Dr. Ramírez Attending Physician: Tosha Ramírez, History of Present Illness Patient is a 75-year-old male with ongoing issues which include 1.Apical hypertrophic cardiomyopathy, nonobstructive with chronically abnormal EKG 2.Complex ventricular ectopy. 3.Dilated ascending aorta. 4.Nonsustained ventricular tachycardia 5. Status post prophylactic single-chamber ICD implantation January 02, 2018 Medtronic Visia AF MRI 6. Paroxysmal atrial fibrillation on anticoagulation with Eliquis 7. Thromboembolic right middle cerebral artery distribution stroke February 05, 2020 8. Moderate mitral insufficiency 9. Hypertension 10.Prostate carcinoma status post radiation therapy. Patient presented to PCP yesterday noting several weeks history of weakness and fatigue mild dizziness but no syncope. No chest pains no tachypalpitations no fevers chills or unexplained infections. No bleeding difficulties. Recently returned from travel to [place] in [facility] and noted poor tolerance of exercise while there. Patient referred for further inpatient evaluation with EKG demonstrating atrial fibrillation with slow ventricular response Patient notes no bleeding difficulties. Is been taking medications as prescribed. Appetite and weight have been stable. No headaches or visual changes. No neurologic complaints. Does feel blurred vision when dizzy. Telemetry reveals atrial fibrillation with intermittent ventricular pacing at 40 bpm (set rate of prophylactic defibrillator) Allergies Allergy/AdvReac Type Severity Reaction Status Date / Time No Known Allergies Allergy Verified 09/01/20 17:19 Home Medications Medication Instructions Recorded Confirmed Type Eliquis 5 mg PO BID 02/23/20 09/01/20 History atorvastatin 20 mg PO QAM 02/23/20 09/01/20 History calcium citrate 200 mg PO QAM 02/23/20 09/01/20 History docusate sodium 100 mg PO QAM 02/23/20 09/01/20 History folic acid 2 mg PO QAM 02/23/20 09/01/20 History metoprolol succinate [Toprol XL] 50 mg PO QAM 02/23/20 09/01/20 History multivitamin 1 tab PO QAM 02/23/20 09/01/20 History omeprazole 20 mg PO BID 02/23/20 09/01/20 History fiber 2 tab PO QAM 03/17/20 09/01/20 History magnesium oxide 400 mg PO QAM 03/17/20 09/01/20 History lisinopril 5 mg PO DAILY 09/01/20 09/01/20 History oxybutynin chloride 10 mg PO DAILY 09/01/20 09/01/20 History Patient History Medical History Atrial fibrillation paroxysmal, new diagnosis (reason for Eliquis) CKD (chronic kidney disease) stage III Diverticulitis Hematuria History of prostate cancer s/p surgery/xrt (2018) Hyperlipidemia Hypertension Hypertrophic cardiomegaly hypertrophic non-obstructive cardiomyopathy ICD (implantable cardioverter-defibrillator) in place ICD/PPM, implanted 2017, [employer], last check 01/06/20 Mitral regurgitation moderate to severe MR per 02/06/20 echo Stroke 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), no residual issues 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 Surgical History H/O shoulder surgery LEFT History of cardiac cath 1986 History of colonoscopy History of cystoscopy History of prostatectomy History of tooth extraction Hx of vasectomy [place] teeth removed Family History Grandfather (Maternal) Family hx of colon cancer Other No family history of adverse response to anesthesia Social History Smoking Status: Never smoker Second Hand Exposure: No; Hx Alcohol Use: Yes Alcohol type: hard liquor Hx Substance Use: No Preferred Language: Peruvian Communication Ability: Effective 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 Officer Required: No Beliefs That Will Affect Care: None Current Living Situation: Alone Other Information That Helps Us Care for You: No Feels Safe at Home: Yes Safety Concerns: Feels Safe At This Time Assistive Devices: None Review of Systems Review of Systems: All systems reviewed & are unremarkable except as noted in HPI & below Physical Exam Constitutional: WD/WN, vitals as above Eyes: PERRL, conjunctivae normal, anicteric sclerae ENMT: external ear and nose normal, oropharynx normal Neck: trachea midline, no thyromegaly Respiratory: normal respiratory effort, lungs clear to auscultation Cardiovascular: Rate/Rhythm: + irregularly irregular Heart Sounds: normal S1 and normal S2; no gallop and no murmur Palpation: normal PMI Vessels: normal carotid upstroke and radial pulses present; no JVD and no carotid bruit Extremities: no edema Gastrointestinal (Abdomen): normal bowel sounds, soft, nontender, no hepatosplenomegaly Musculoskeletal: no cyanosis or clubbing, extremities motor strength 5/5 Skin: no rashes, warm and dry Neurologic: PERRL, EOMI, accommodation nl, no face palsy, no dysarthria Psychiatric: A+Ox3, euthymic affect Results & Data ([facility]) Vital Signs (Past 12 Hours) Vital Signs Temp Pulse Pulse Resp BP Pulse Ox 09/02/20 07:07 64 09/02/20 07:01 36.9 C 55 L 19 138/79 95 09/02/20 04:25 36.5 C 62 18 137/76 96 09/02/20 00:21 57 L Laboratory Results Laboratory Results - last 24 hr 09/01/20 09/01/20 09/01/20 18:28 18:28 18:28 WBC 5.89 RBC 4.11 L Hgb 13.2 L Hct 38.9 L MCV 94.6 MCH 32.1 MCHC 33.9 RDW Std Deviation 48.8 H RDW Coeff of Tip 14.1 Plt Count 152 MPV 9.8 Immature Gran % (Auto) 0.2 Neut % (Auto) 63.9 Lymph % (Auto) 22.1 [place] % (Auto) 12.1 Eos % (Auto) 1.5 Baso % (Auto) 0.2 Neut # (Auto) 3.77 Lymph # (Auto) 1.30 Love # (Auto) 0.71 H Eos # (Auto) 0.09 Baso # (Auto) 0.01 Immature Gran # (Auto) 0.01 PT 11.0 INR 1.1 APTT 27.8 PTT Ratio 1.1 Sodium 138 Potassium 4.2 Chloride 108 H Carbon Dioxide 24 Anion Gap 6.0 BUN 21 H Creatinine 1.10 Est Cr Clr Drug Dosing 62.7 Est GFR ( Amer) 75.2 Est GFR (Non-Af Amer) 64.9 BUN/Creatinine Ratio 19.5 Glucose 87 Calcium 9.0 Magnesium Total Bilirubin 0.8 AST 66 H ALT 119 H Alkaline Phosphatase 64 Total Creatine Kinase 75 CK-MB (CK-2) 2.5 CK/CKMB % Calc 3.3 H Troponin I 0.447 H* Total Protein 6.2 L Albumin 3.6 Globulin 2.6 Albumin/Globulin Ratio 1.4 Lipase 81 TSH Ethyl Alcohol mg/dL Anaplasma Smear A. phagocytophilum DNA Lyme Disease IgG Ab Lyme Disease IgM Ab COVID-19 Eval Order SARS-CoV-2 (PCR) 09/01/20 09/01/20 09/01/20 18:28 18:33 18:33 WBC RBC Hgb Hct MCV MCH MCHC RDW Std Deviation RDW Coeff of Tip Plt Count MPV Immature Gran % (Auto) Neut % (Auto) Lymph % (Auto) [place] % (Auto) Eos % (Auto) Baso % (Auto) Neut # (Auto) Lymph # (Auto) [place] # (Auto) Eos # (Auto) Baso # (Auto) Immature Gran # (Auto) PT INR APTT PTT Ratio Sodium Potassium Chloride Carbon Dioxide Anion Gap BUN Creatinine Est Cr Clr Drug Dosing Est GFR ( Amer) Est GFR (Non-Af Amer) BUN/Creatinine Ratio Glucose Calcium Magnesium 2.1 Total Bilirubin AST ALT Alkaline Phosphatase Total Creatine Kinase CK-MB (CK-2) CK/CKMB % Calc Troponin I Total Protein Albumin Globulin Albumin/Globulin Ratio Lipase TSH 1.800 Ethyl Alcohol mg/dL Anaplasma Smear A. phagocytophilum DNA Lyme Disease IgG Ab Lyme Disease IgM Ab COVID-19 Eval Order Covid19 at [facility] SARS-CoV-2 (PCR) NEGATIVE 09/01/20 09/01/20 09/01/20 20:05 20:25 20:25 WBC RBC Hgb Hct MCV MCH MCHC RDW Std Deviation RDW Coeff of Tip Plt Count MPV Immature Gran % (Auto) Neut % (Auto) Lymph % (Auto) [place] % (Auto) Eos % (Auto) Baso % (Auto) Neut # (Auto) Lymph # (Auto) [place] # (Auto) Eos # (Auto) Baso # (Auto) Immature Gran # (Auto) PT INR APTT PTT Ratio Sodium Potassium Chloride Carbon Dioxide Anion Gap BUN Creatinine Est Cr Clr Drug Dosing Est GFR ( Amer) Est GFR (Non-Af Amer) BUN/Creatinine Ratio Glucose Calcium Magnesium Total Bilirubin AST ALT Alkaline Phosphatase Total Creatine Kinase CK-MB (CK-2) CK/CKMB % Calc Troponin I 0.403 H* Total Protein Albumin Globulin Albumin/Globulin Ratio Lipase TSH Ethyl Alcohol mg/dL < 3.0 Anaplasma Smear A. phagocytophilum DNA Lyme Disease IgG Ab Negative Lyme Disease IgM Ab Negative COVID-19 Eval Order SARS-CoV-2 (PCR) 09/02/20 09/02/20 09/02/20 05:49 05:49 05:49 WBC 4.69 L RBC 3.96 L Hgb 12.7 L Hct 37.7 L MCV 95.2 MCH 32.1 MCHC 33.7 RDW Std Deviation 49.2 H RDW Coeff of Tip 14.1 Plt Count 155 MPV 10.0 Immature Gran % (Auto) 0.2 Neut % (Auto) 60.8 Lymph % (Auto) 22.6 [place] % (Auto) 13.0 Eos % (Auto) 3.2 Baso % (Auto) 0.2 Neut # (Auto) 2.85 Lymph # (Auto) 1.06 L [place] # (Auto) 0.61 H Eos # (Auto) 0.15 Baso # (Auto) 0.01 Immature Gran # (Auto) 0.01 PT INR APTT PTT Ratio Sodium 140 Potassium 3.9 Chloride 108 H Carbon Dioxide 27 Anion Gap 5.0 BUN 20 H Creatinine 1.07 Est Cr Clr Drug Dosing 64.5 Est GFR ( Amer) 77.7 Est GFR (Non-Af Amer) 67.1 BUN/Creatinine Ratio 18.2 Glucose 80 Calcium 8.6 Magnesium Total Bilirubin 1.0 AST 46 H ALT 104 H Alkaline Phosphatase 57 Total Creatine Kinase CK-MB (CK-2) CK/CKMB % Calc Troponin I Total Protein 5.7 L Albumin 3.3 L Globulin 2.4 L Albumin/Globulin Ratio 1.4 Lipase TSH Ethyl Alcohol mg/dL Anaplasma Smear See Comment A. phagocytophilum DNA Lyme Disease IgG Ab Lyme Disease IgM Ab COVID-19 Eval Order SARS-CoV-2 (PCR) 09/02/20 05:49 WBC RBC Hgb Hct MCV MCH MCHC RDW Std Deviation RDW Coeff of Tip Plt Count MPV Immature Gran % (Auto) Neut % (Auto) Lymph % (Auto) [place] % (Auto) Eos % (Auto) Baso % (Auto) Neut # (Auto) Lymph # (Auto) [place] # (Auto) Eos # (Auto) Baso # (Auto) Immature Gran # (Auto) PT INR APTT PTT Ratio Sodium Potassium Chloride Carbon Dioxide Anion Gap BUN Creatinine Est Cr Clr Drug Dosing Est GFR ( Amer) Est GFR (Non-Af Amer) BUN/Creatinine Ratio Glucose Calcium Magnesium Total Bilirubin AST ALT Alkaline Phosphatase Total Creatine Kinase CK-MB (CK-2) CK/CKMB % Calc Troponin I Total Protein Albumin Globulin Albumin/Globulin Ratio Lipase TSH Ethyl Alcohol mg/dL Anaplasma Smear A. phagocytophilum DNA Pending Lyme Disease IgG Ab Lyme Disease IgM Ab COVID-19 Eval Order SARS-CoV-2 (PCR)
[2020-09-02] MEDS ORDERED: SOTALOL HCL 80 MG TAB PO ONE (10:52)
--- NOTE | 2020-09-02 11:29 | Electrocardiogram Report ---
Test Reason : Blood Pressure : / mmHG Vent. Rate : 061 BPM Atrial Rate : 250 BPM P-R Int : 000 ms QRS Dur : 080 ms QT Int : 438 ms P-R-T Axes : 000 022 -47 degrees QTc Int : 440 ms Atrial fibrillation T wave abnormality, consider inferior ischemia T wave abnormality, consider anterolateral ischemia Abnormal ECG When compared with ECG of 23-FEB-2020 12:33, Atrial fibrillation has replaced Sinus rhythm Inverted T waves have replaced nonspecific T wave abnormality in Lateral leads Confirmed by Javier Mix ([id number] on 09/02/2020 11:29:14 AM Referred By: Venkat King Confirmed By:Noam Mix
--- NOTE | 2020-09-02 11:39 | Electrocardiogram Report ---
Test Reason : Blood Pressure : / mmHG Vent. Rate : 056 BPM Atrial Rate : 056 BPM P-R Int : 122 ms QRS Dur : 082 ms QT Int : 460 ms P-R-T Axes : 220 074 -59 degrees QTc Int : 443 ms Atrial fibrillation with demand ventricular pacing T wave abnormality, consider inferior ischemia T wave abnormality, consider anterolateral ischemia Abnormal ECG When compared with ECG of 01-SEP-2020 17:08, (unconfirmed) Electronic ventricular pacemaker has replaced Atrial fibrillation Confirmed by Javier Mix ([id number] on 09/02/2020 11:39:17 AM Referred By: Venkat King Confirmed By:Noam Mix
--- NOTE | 2020-09-02 14:37 | Hospitalist Progress Note ---
Date of Service September 02, 2020 Assessment & Plan (1) Lightheadedness: Multifactorial but we are seeing him clinically improve and have a renewed sense of urgency and balance. And his pacemaker was adjusted as well as his metoprolol (2) Atrial fibrillation with slow ventricular response: sotalol load per cardiology. Needs 6 doses on tele monitor before he can leave. (3) Apical variant hypertrophic cardiomyopathy: s/p prophylactic ICD (4) ICD (implantable cardioverter-defibrillator) in place: (5) Elevated troponin: Workup per cardiology. DO [facility]. Admission and Anticipated Discharge Date Admission Date: September 01, 2020 Subjective Admitted for worsening fatigue/malaise and lightheadedness. Has a history of HOCM, and prophylactic ICD plancement. He is in atrial fibrillation. Cardiology was consulted and made some tweaks to his device and plan for sotalol load. Patient is already reporting his feeling better. Denies CP or SOB. Review of Systems Review of Systems: All systems reviewed & are unremarkable except as noted in Subjective Physical Exam Physical Exam: CONSTITUTIONAL: WNWD, vitals as above, generally well- appearing EYES: normal conjunctivae, no scleral icterus ENT: external ear and nose normal, MMM RESPIRATORY: clear to auscultation bilaterally, no crackles, rales or wheezes, normal respiratory effort CARDIOVASCULAR: regular rate and rhythm, S1 and 2 heard without murmurs, gallops or rubs, no JVD, no peripheral edema GASTROINTESTINAL: normal bowel sounds, soft, nontender, no guarding MUSCULOSKELETAL: strength 5/5 throughout, head is normocephalic and atraumatic, neck supple, normal palpation of chest wall without tenderness SKIN: warm and dry, no rashes NEUROLOGIC: No gross focal deficit. Results & Data Results & Data ([facility]) Vital Signs (Past 12 Hours) Vital Signs Temp Pulse Pulse Resp BP Pulse Ox 09/02/20 11:08 37.1 C 58 L 18 125/83 95 09/02/20 07:07 64 09/02/20 07:01 36.9 C 55 L 19 138/79 95 09/02/20 04:25 36.5 C 62 18 137/76 96 Laboratory Results Short CBC 09/01/20 09/02/20 Range/Units 18:28 05:49 WBC 5.89 4.69 L (4.8-10.8) K/uL Hgb 13.2 L 12.7 L (14.0-18.0) g/dL Hct 38.9 L 37.7 L (42-52) % Plt Count 152 155 (130-400) K/uL BMP 09/01/20 09/02/20 18:28 05:49 Sodium 138 140 Potassium 4.2 3.9 Chloride 108 H 108 H Carbon Dioxide 24 27 BUN 21 H 20 H Creatinine 1.10 1.07 Glucose 87 80 Calcium 9.0 8.6 Cardiac Enzymes 09/01/20 09/01/20 Range/Units 18:28 20:25 Total Creatine Kinase 75 (39-308) U/L CK-MB (CK-2) 2.5 (0.5-3.6) ng/ml Troponin I 0.447 H* 0.403 H* (0-0.045) ng/ml Liver Function 09/01/20 09/02/20 Range/Units 18:28 05:49 Total Bilirubin 0.8 1.0 (0.2-1) mg/dl AST 66 H 46 H (15-37) U/L ALT 119 H 104 H (12-78) U/L Alkaline Phosphatase 64 57 (45-117) U/L Albumin 3.6 3.3 L (3.4-5.0) gm/dl Medications Administered Current Inpatient Medications Acetaminophen (Acetaminophen 325 Mg Tab) 325 mg PO Q6H PRN PRN Reason: Mild Pain Stop: 10/01/20 20:46 Apixaban (Apixaban 5 Mg Tablet) 5 mg PO BID [facility] Stop: 10/01/20 22:36 Last Admin: 09/02/20 08:06 Dose: 5 mg Documented by: Atorvastatin Calcium (Atorvastatin 20 Mg Tab) 20 mg PO [facility] Stop: 10/02/20 08:59 Last Admin: 09/02/20 08:05 Dose: 20 mg Documented by: Docusate Sodium (Docusate Sodium 100 Mg Cap) [facility] Stop: 10/02/20 08:59 Last Admin: 09/02/20 08:05 Dose: 100 mg Documented by: Folic Acid (Folic Acid 1 Mg Tab) [facility] Stop: 10/02/20 08:59 Last Admin: 09/02/20 08:05 Dose: 2 mg Documented by: Promethazine HCl 12.5 mg/ (Sodium Chloride) 50.5 mls @ 202 mls/hr IV Q6H PRN PRN Reason: Nausea And Vomiting Stop: 10/01/20 22:36 Lisinopril (Lisinopril 5 Mg Tab) 5 mg PO DAILY [facility] Stop: 10/02/20 08:59 Last Admin: 09/02/20 08:05 Dose: 5 mg Documented by: Multivitamins (Multivitamin Tab) 1 tab PO QAM [facility] Stop: 10/02/20 08:59 Last Admin: 09/02/20 08:05 Dose: 1 tab Documented by: Oxybutynin Chloride (Oxybutynin Chloride Xl 5 Mg Tabcr) 10 mg PO DAILY [facility] Stop: 10/02/20 08:59 Last Admin: 09/02/20 08:05 Dose: 10 mg Documented by: Oxycodone HCl (Oxycodone Hcl Ir 5 Mg Tab (Immediate Release)) 5 mg PO Q4H PRN PRN Reason: Pain Stop: 09/15/20 22:36 Pantoprazole Sodium (Pantoprazole 40 Mg Tab) 40 mg PO BID [facility] Stop: 10/01/20 22:36 Last Admin: 09/02/20 08:06 Dose: 40 mg Documented by: Sotalol HCl (Sotalol Hcl 80 Mg Tab) 80 mg PO BID [facility] Stop: 10/02/20 20:59
--- NOTE | 2020-09-02 16:59 | Electrocardiogram Report ---
Test Reason : Blood Pressure : / mmHG Vent. Rate : 057 BPM Atrial Rate : 375 BPM P-R Int : 000 ms QRS Dur : 168 ms QT Int : 548 ms P-R-T Axes : 000 -71 084 degrees QTc Int : 533 ms Atrial fibrillation with demand ventricular pacing Abnormal ECG Confirmed by Javier Mix ([id number]) on 09/02/2020 4:59:23 PM Referred By: Venkat King Confirmed By:Noam Mix
[2020-09-02] MEDS: SOTALOL HCL 80 MG TAB PO SCH (19:58)
[2020-09-03] MEDS ORDERED: POTASSIUM CHLORIDE CRTAB 20 MEQ TABCR PO STA (02:26)
[2020-09-03] MEDS ORDERED: MAGNESIUM SULFATE / D5W 1 GM/100 ML BAG IV ONE (02:30)
[2020-09-03 02:57] LABS: Basophils # (auto) 0.01 K/uL (0-0.2); Basophils % (auto) 0.2 %; Eosinophils # (auto) 0.11 K/uL (0-0.5); Eosinophils % (auto) 2.1 %; Hematocrit (blood only) 38.6 % (42-52); Hemoglobin 13.3 g/dL (14.0-18.0); Immature Granulocytes # (auto) 0.01 K/uL (0.00-0.02); Immature Granulocytes % (auto) 0.2 %; Lymphocytes # (auto) 1.25 K/uL (1.2-3.4); Lymphocytes % (auto) 24.1 %; Mean Corpuscular Hemoglobin 32.6 pg (25-34); Mean Corpuscular Hgb Conc 34.5 g/dL (32-36); Mean Corpuscular Volume 94.6 fL (80-100); Mean Platelet Volume 9.7 fL (7.4-10.4); Monocytes # (auto) 0.56 K/uL (0.11-0.59); Monocytes % (auto) 10.8 %; Neutrophils # (auto) 3.24 K/uL (1.4-6.5); Neutrophils % (auto) 62.6 %; Platelet Count 148 K/uL (130-400); RDW Coefficient of Variation 13.9 % (11.5-14.5); Red Blood Count 4.08 M/uL (4.7-6.1); White Blood Count 5.18 K/uL (4.8-10.8)
[2020-09-03 03:15] LABS: BUN Creatinine Ratio 16.5 (10-20); Calcium 8.5 mg/dl (8.5-10.1); Creatinine Clr Calc Pharmacy 55.2 ml/min; Est GFR (African American) 64.4 ml/min; Est GFR (Non-African American) 55.6 ml/min; Magnesium 2.2 mg/dl (1.8-2.4); Potassium 4.1 mmol/L (3.5-5.1)
--- NOTE | 2020-09-03 06:38 | Hospitalist Progress Note ---
Date of Service September 03, 2020 Assessment & Plan (1) Lightheadedness: Multifactorial but already clinically improved. His pacemaker was adjusted and pt was Started on sotalol. (2) Atrial fibrillation with slow ventricular response: Started on sotalol load per cardiology. Needs 6 doses on tele monitor as inpt to closely monitor QTc. Patient to remain fully anticoagulated with Eliquis Echocardiogram ordered to reassess degree of mitral insufficiency and left atrial enlargement Echo - the reader is atrial fibrillation with controlled ventricular response. EF 50 to 55%. Asymmetric LV hypertrophy involving the septum and apex. Maximal wall thickness involving the septum is 1.8 cm. LA is severely dilated. RA is a mildly dilated. Mild AR. There is moderate to severe mitral regurg. There is moderate tricuspid regurg. The estimated systolic pulmonary pressure is 53 millimeters of mercury. Mild aortic root dilatation. The ascending aorta is moderately enlarged 4.6 cm. -Discussed with cardiology, likely cardioversion tomorrow (09/04) NSVT - (09/03) Overnight reported about 15 beat at 2 AM, and then possibly 10 beats again at 4 AM, cardiology aware (3) Apical variant hypertrophic cardiomyopathy: s/p prophylactic ICD (4) ICD (implantable cardioverter-defibrillator) in place: (5) Elevated troponin: Workup per cardiology - believed to be Chronic troponin elevation consistent with hypertrophic cardiomyopathy. No evidence suggest acute coronary syndrome Elevated LFTs -Possibly secondary to his cardiac issues as above -Tickborne panel obtained on admission, but patient denies any history of tick bites -Reports no pain in right upper quadrant at this time -We will obtain liver ultrasound to further evaluate -Trend LFTs Admission and Anticipated Discharge Date Admission Date: September 03, 2020 Subjective Patient seen in follow-up of dizziness, A. fib with slow ventricular response Has a history of HOCM, and prophylactic ICD placement. He is in atrial fibrillation. Cardiology was consulted and made some changes to his device and started sotalol. Overnight patient has had episode of V. tach, will further discuss with cardiology. Patient is already reporting feeling better. He is currently lying in bed, says that he was walking in the hallway, without any dizziness. Denies any palpitations chest pain shortness of breath. Likely cardioversion tomorrow Elevated LFTs, will obtain liver ultrasound Review of Systems Review of Systems: All systems reviewed & are unremarkable except as noted in HPI & below Constitutional: no fever and no chills Respiratory: no cough and no dyspnea Cardiovascular: no chest pain and no palpitations Gastrointestinal: no abdominal pain, no nausea and no vomiting Physical Exam Physical Exam: CONSTITUTIONAL: WNWD, vitals as above, generally well- appearing EYES: normal conjunctivae, no scleral icterus ENT: external ear and nose normal, MMM RESPIRATORY: clear to auscultation bilaterally, no crackles, rales or wheezes, normal respiratory effort CARDIOVASCULAR: irregular, S1 and 2 heard without murmurs, gallops or rubs, no JVD, no peripheral edema GASTROINTESTINAL: normal bowel sounds, soft, nontender, no guarding MUSCULOSKELETAL: strength 5/5 throughout, head is normocephalic and atraumatic, neck supple, normal palpation of chest wall without tenderness SKIN: warm and dry, no rashes NEUROLOGIC: Alert oriented x3, answering questions appropriately, moving extremities without difficulty Results & Data Results & Data ([facility]) Vital Signs (Past 12 Hours) Vital Signs Temp Pulse Resp BP Pulse Ox 09/03/20 03:47 36.8 C 61 20 122/75 97 09/02/20 23:09 36.7 C 54 L 16 120/77 92 09/02/20 19:17 36.9 C 54 L 18 134/81 94 Laboratory Results 09/03/20 09/03/20 09/02/20 Range/Units 02:42 02:42 05:49 WBC 5.18 (4.8-10.8) K/uL RBC 4.08 L (4.7-6.1) M/uL Hgb 13.3 L (14.0-18.0) g/dL Hct 38.6 L (42-52) % MCV 94.6 (80-100) fL MCH 32.6 (25-34) pg MCHC 34.5 (32-36) g/dL RDW Std Deviation 48.0 H (36.4-46.3) fL RDW Coeff of Tip 13.9 (11.5-14.5) % Plt Count 148 (130-400) K/uL MPV 9.7 (7.4-10.4) fL Immature Gran % (Auto) 0.2 % Neut % (Auto) 62.6 % Lymph % (Auto) 24.1 % [place] % (Auto) 10.8 % Eos % (Auto) 2.1 % Baso % (Auto) 0.2 % Neut # (Auto) 3.24 (1.4-6.5) K/uL Lymph # (Auto) 1.25 (1.2-3.4) K/uL [place] # (Auto) 0.56 (0.11-0.59) K/uL Eos # (Auto) 0.11 (0-0.5) K/uL Baso # (Auto) 0.01 (0-0.2) K/uL Immature Gran # (Auto) 0.01 (0.00-0.02) K/uL Sodium 141 (136-145) mmol/L Potassium 4.1 (3.5-5.1) mmol/L Chloride 110 H (98-107) mmol/L Carbon Dioxide 25 (21-32) mmol/L Anion Gap 6.0 (3-11) BUN 21 H (7-18) mg/dl Creatinine 1.25 (0.6-1.4) mg/dl Est Cr Clr Drug Dosing 55.2 ml/min Est GFR ( Amer) 64.4 ml/min Est GFR (Non-Af Amer) 55.6 ml/min BUN/Creatinine Ratio 16.5 (10-20) Glucose 86 (70-99) mg/dl Calcium 8.5 (8.5-10.1) mg/dl Magnesium 2.2 (1.8-2.4) mg/dl Total Bilirubin (0.2-1) mg/dl AST (15-37) U/L ALT (12-78) U/L Alkaline Phosphatase (45-117) U/L Total Protein (6.4-8.2) gm/dl Albumin (3.4-5.0) gm/dl Globulin (2.5-4.0) gm/dl Albumin/Globulin Ratio (0.9-2) Anaplasma Smear See Comment 09/02/20 09/02/20 Range/Units 05:49 05:49 WBC 4.69 L (4.8-10.8) K/uL RBC 3.96 L (4.7-6.1) M/uL Hgb 12.7 L (14.0-18.0) g/dL Hct 37.7 L (42-52) % MCV 95.2 (80-100) fL MCH 32.1 (25-34) pg MCHC 33.7 (32-36) g/dL RDW Std Deviation 49.2 H (36.4-46.3) fL RDW Coeff of Tip 14.1 (11.5-14.5) % Plt Count 155 (130-400) K/uL MPV 10.0 (7.4-10.4) fL Immature Gran % (Auto) 0.2 % Neut % (Auto) 60.8 % Lymph % (Auto) 22.6 % [place] % (Auto) 13.0 % Eos % (Auto) 3.2 % Baso % (Auto) 0.2 % Neut # (Auto) 2.85 (1.4-6.5) K/uL Lymph # (Auto) 1.06 L (1.2-3.4) K/uL [place] # (Auto) 0.61 H (0.11-0.59) K/uL Eos # (Auto) 0.15 (0-0.5) K/uL Baso # (Auto) 0.01 (0-0.2) K/uL Immature Gran # (Auto) 0.01 (0.00-0.02) K/uL Sodium 140 (136-145) mmol/L Potassium 3.9 (3.5-5.1) mmol/L Chloride 108 H (98-107) mmol/L Carbon Dioxide 27 (21-32) mmol/L Anion Gap 5.0 (3-11) BUN 20 H (7-18) mg/dl Creatinine 1.07 (0.6-1.4) mg/dl Est Cr Clr Drug Dosing 64.5 ml/min Est GFR ( Amer) 77.7 ml/min Est GFR (Non-Af Amer) 67.1 ml/min BUN/Creatinine Ratio 18.2 (10-20) Glucose 80 (70-99) mg/dl Calcium 8.6 (8.5-10.1) mg/dl Magnesium (1.8-2.4) mg/dl Total Bilirubin 1.0 (0.2-1) mg/dl AST 46 H (15-37) U/L ALT 104 H (12-78) U/L Alkaline Phosphatase 57 (45-117) U/L Total Protein 5.7 L (6.4-8.2) gm/dl Albumin 3.3 L (3.4-5.0) gm/dl Globulin 2.4 L (2.5-4.0) gm/dl Albumin/Globulin Ratio 1.4 (0.9-2) Anaplasma Smear Medications Administered Current Inpatient Medications Acetaminophen (Acetaminophen 325 Mg Tab) 325 mg PO Q6H PRN PRN Reason: Mild Pain Stop: 10/01/20 20:46 Apixaban (Apixaban 5 Mg Tablet) 5 mg PO BID [facility] Stop: 10/01/20 22:36 Last Admin: 09/02/20 19:58 Dose: 5 mg Documented by: Atorvastatin Calcium (Atorvastatin 20 Mg Tab) 20 mg PO [facility] Stop: 10/02/20 08:59 Last Admin: 09/02/20 08:05 Dose: 20 mg Documented by: Docusate Sodium (Docusate Sodium 100 Mg Cap) 100 mg PO [facility] Stop: 10/02/20 08:59 Last Admin: 09/02/20 08:05 Dose: 100 mg Documented by: Folic Acid (Folic Acid 1 Mg Tab) 2 mg PO [facility] Stop: 10/02/20 08:59 Last Admin: 09/02/20 08:05 Dose: 2 mg Documented by: Promethazine HCl 12.5 mg/ (Sodium Chloride) 50.5 mls @ 202 mls/hr IV Q6H PRN PRN Reason: Nausea And Vomiting Stop: 10/01/20 22:36 Lisinopril (Lisinopril 5 Mg Tab) 5 mg PO DAILY [facility] Stop: 10/02/20 08:59 Last Admin: 09/02/20 08:05 Dose: 5 mg Documented by: Multivitamins (Multivitamin Tab) 1 tab PO [facility] Stop: 10/02/20 08:59 Last Admin: 09/02/20 08:05 Dose: 1 tab Documented by: Oxybutynin Chloride (Oxybutynin Chloride Xl 5 Mg Tabcr) 10 mg PO DAILY [facility] Stop: 10/02/20 08:59 Last Admin: 09/02/20 08:05 Dose: 10 mg Documented by: Oxycodone HCl (Oxycodone Hcl Ir 5 Mg Tab (Immediate Release)) 5 mg PO Q4H PRN PRN Reason: Pain Stop: 09/15/20 22:36 Pantoprazole Sodium (Pantoprazole 40 Mg Tab) 40 mg PO BID [facility] Stop: 10/01/20 22:36 Last Admin: 09/02/20 19:58 Dose: 40 mg Documented by: Sotalol HCl (Sotalol Hcl 80 Mg Tab) 80 mg PO BID [facility] Stop: 10/02/20 20:59 Last Admin: 09/02/20 19:58 Dose: 80 mg Documented by:
[2020-09-03] MEDS: SOTALOL HCL 80 MG TAB PO SCH ×2 (09:32→20:45)
[2020-09-03] MEDS: APIXABAN 5 MG TABLET PO SCH ×2 (09:32→20:44)
[2020-09-03] MEDS: PANTOprazole 40 MG TAB PO SCH ×2 (09:32→20:46)
[2020-09-03] MEDS: OXYBUTYNIN CHLORIDE XL 5 MG TABCR PO SCH (09:33)
[2020-09-03] MEDS: lisinopril 5 MG TAB PO SCH (09:33)
[2020-09-03] MEDS: MULTIVITAMIN TAB PO SCH (09:33)
[2020-09-03] MEDS: FOLIC ACID 1 MG TAB PO SCH (09:33)
[2020-09-03] MEDS: DOCUSATE SODIUM 100 MG CAP PO SCH (09:34)
--- NOTE | 2020-09-03 11:57 | Cardiology Progress Note ---
Date of Service September 03, 2020 Assessment & Plan (1) Atrial fibrillation with slow ventricular response: (2) Apical variant hypertrophic cardiomyopathy: (3) Elevated troponin: (4) ICD (implantable cardioverter-defibrillator) in place: (5) Nonsustained ventricular tachycardia: (6) Elevated transaminase measurement: (1) Atrial fibrillation with slow ventricular response: -Patient with history of paroxysmal atrial fibrillation which was initially diagnosed at the time of thromboembolic stroke in January,. -Per device interrogation, he has lapsed into atrial fibrillation beginning on 08/15/2020, with noted poor exercise tolerance when he recently visited family at [facility] in [place], and culminated in progressive generalized weakness and dizziness prompting evaluation and findings of atrial fibrillation with slow ventricular response. -He has a single-chamber ICD, and the backup pacing rate was reprogrammed from 40 bpm to 50 bpm to allow heart rate support. -He received his third dose of sotalol this morning and EKG reveals atrial fibrillation at 60 bpm with occasional ventricular pacing, stable corrected QT interval of 438 ms. -Continue sotalol initiation. -Electrolytes including potassium and magnesium are within normal limits today. -If he remains in atrial fibrillation overnight, plan for direct-current cardioversion tomorrow, anesthesia service has been consulted, case discussed by phone with Dr. Rodirguez. -He is on Eliquis 5 mg twice daily for stroke prophylaxis. He has not had any recent prolonged interruptions, he perhaps missed 1 dose approximately 10 days ago but otherwise no missed doses. (2) Apical variant hypertrophic cardiomyopathy: -Longstanding history of apical variant hypertrophic cardiomyopathy. -Stable ejection fraction of 50 to 55% on echocardiogram performed 09/02/2020. -Severe left atrial enlargement noted -Moderate to severe mitral regurgitation noted, worse compared to previous -Moderate tricuspid regurgitation -Echodensity noted in the right atrium, perhaps anatomical variant (eustachian valve/Chiari network). He has been on chronic anticoagulation so I think the risk of this being a thrombus is low. He does not have any infectious symptoms or fever. Blood cultures obtained for completeness, no growth thus far. -Volume status stable. (3) Elevated troponin: -Mild, flat elevation in troponin, likely due to underlying cardiomyopathy. (4) ICD (implantable cardioverter-defibrillator) in place: -Stable function. (5) nonsustained ventricular tachycardia: -Per review of record, patient underwent a [facility] director of cardiac rehabilitation as an outpatient in Aug, 2017, with findings of 18 episodes of nonsustained ventricular tachycardia, similar in morphology to what was observed earlier this morning on telemetry, the episodes in 2018 average 10 beats in duration. -The patient's history of hypertrophic cardiomyopathy plus episodes of nonsustained VT, prompted implantation of the single-chamber ICD in December, ([facility]). -The NSVT is therefore a chronic finding. -Continue to monitor closely during sotalol initiation. (6) Elevate transaminase level: -Elevation in AST, ALT. -New compared to outpatient laboratory studies performed in May,. -Could be from passive hepatic congestion in the setting of cardiomyopathy, and hemodynamic consequences of having been in atrial fibrillation for the last 2 weeks. -Agree with holding atorvastatin. -Discussed with Dr. Maldonado, will consider abdominal ultrasound imaging. Admission and Anticipated Discharge Date Admission Date: September 03, 2020 Subjective Patient seen in cardiology follow-up of his chief complaint of dizziness, generalized fatigue, and findings of atrial fibrillation. He states that he is feeling improved since the change in his medication, and the increase in the basal rate of his single-chamber ICD for lower limit pacing of 50 bpm. He has done several laps walking in the unit without recurrent dizziness which was a symptom that prompted his presentation. Telemetry reveals ongoing atrial fibrillation for the most part in the range of 50 to 60 bpm. 2 rounds of nonsustained wide-complex tachycardia were observed in the group exercise manager hours this morning 1 of 10 beats in duration at 4:01 AM, and 1 of 15 beats in duration at 1:57 AM, with morphology consistent with nonsustained ventricular tachycardia. These occurred during sleep. Review of Systems Review of Systems: All systems reviewed & are unremarkable except as noted in HPI & below Physical Exam Physical Exam: Temp Pulse Resp BP Pulse Ox 36.7 C 66 18 136/80 97 09/03/20 07:39 09/03/20 07:39 09/03/20 07:39 09/03/20 07:39 09/03/20 07:39 Constitutional: WD/WN, vitals as above Respiratory: normal respiratory effort, lungs clear to auscultation Cardiovascular: Rate/Rhythm: + irregularly irregular Heart Sounds: + murmur (1/6 systolic murmur) Vessels: no JVD Extremities: no edema Gastrointestinal (Abdomen): normal bowel sounds, soft, nontender, no hepatosplenomegaly Neurologic: PERRL, EOMI, accommodation nl, no face palsy, no dysarthria Results & Data ([facility]) Vital Signs (Past 12 Hours) Vital Signs Temp Pulse Resp BP Pulse Ox 09/03/20 07:39 36.7 C 66 18 136/80 97 09/03/20 03:47 36.8 C 61 20 122/75 97
--- NOTE | 2020-09-03 12:03 | Communication Note ---
Date of Service: September 03, 2020 With patient's permission, I called and updated his son, Dawson, who lives in [place], .
--- NOTE | 2020-09-03 12:57 | Anesthesiology Consultation ---
Date of Service September 03, 2020 Assessment & Plan (1) Encounter for pre-operative examination: Chart Review Chart Review: Acceptable Risk for Surgery and Patient NOT seen in Pre Admission Testing Consults Requested none History Height/Weight Height: 6 ft Weight: 81.4 kg Allergies Allergy/AdvReac Type Severity Reaction Status Date / Time No Known Allergies Allergy Verified 09/01/20 17:19 Medications Home Medications Medication Instructions Recorded Confirmed Last Taken Eliquis 5 mg PO BID 02/23/20 09/01/20 04/02/20 20:00 atorvastatin 20 mg PO QAM 02/23/20 09/01/20 04/04/20 10:00 calcium citrate 200 mg PO QAM 02/23/20 09/01/20 04/03/20 08:00 docusate sodium 100 mg PO QAM 02/23/20 09/01/20 04/03/20 08:00 folic acid 2 mg PO QAM 02/23/20 09/01/20 04/03/20 08:00 metoprolol succinate [Toprol XL] 50 mg PO QAM 02/23/20 09/01/20 04/04/20 10:00 multivitamin 1 tab PO QAM 02/23/20 09/01/20 04/03/20 08:00 omeprazole 20 mg PO BID 02/23/20 09/01/20 04/03/20 18:00 fiber 2 tab PO QAM 03/17/20 09/01/20 04/03/20 10:00 magnesium oxide 400 mg PO QAM 03/17/20 09/01/20 04/03/20 08:00 lisinopril 5 mg PO DAILY 09/01/20 09/01/20 Unknown oxybutynin chloride 10 mg PO DAILY 09/01/20 09/01/20 Unknown Active Medications Generic Name Dose Route Start Last Admin Trade Name Freq PRN Reason Stop Dose Admin Apixaban 5 mg 09/01/20 22:37 09/03/20 09:32 Apixaban 5 Mg Tablet PO 10/01/20 22:36 5 mg BID [facility] Administration Atorvastatin Calcium 20 mg 09/02/20 09:00 09/02/20 08:05 Atorvastatin 20 Mg Tab PO 10/02/20 08:59 20 mg QAM [facility] Administration Docusate Sodium 100 mg 09/02/20 09:00 09/03/20 09:34 Docusate Sodium 100 Mg Cap PO 10/02/20 08:59 Not Given QAM [facility] Folic Acid 2 mg 09/02/20 09:00 09/03/20 09:33 Folic Acid 1 Mg Tab PO 10/02/20 08:59 2 mg QAM [facility] Administration Lisinopril 5 mg 09/02/20 09:00 09/03/20 09:33 Lisinopril 5 Mg Tab PO 10/02/20 08:59 5 mg DAILY [facility] Administration Multivitamins 1 tab 09/02/20 09:00 09/03/20 09:33 Multivitamin Tab PO 10/02/20 08:59 1 tab QAM [facility] Administration Oxybutynin Chloride 10 mg 09/02/20 09:00 09/03/20 09:33 Oxybutynin Chloride Xl 5 Mg Tabcr PO 10/02/20 08:59 10 mg DAILY [facility] Administration Pantoprazole Sodium 40 mg 09/01/20 22:37 09/03/20 09:32 Pantoprazole 40 Mg Tab PO 10/01/20 22:36 40 mg BID [facility] Administration Sotalol HCl 80 mg 09/02/20 21:00 09/03/20 09:32 Sotalol Hcl 80 Mg Tab PO 10/02/20 20:59 80 mg BID [facility] Administration Past Medical History Medical History Atrial fibrillation paroxysmal, new diagnosis (reason for Eliquis) CKD (chronic kidney disease) stage III Diverticulitis Hematuria History of prostate cancer s/p surgery/xrt (2018) Hyperlipidemia Hypertension Hypertrophic cardiomegaly hypertrophic non-obstructive cardiomyopathy ICD (implantable cardioverter-defibrillator) in place ICD/PPM, implanted 2017, [employer] Mitral regurgitation moderate to severe MR per 02/06/20 echo Stroke 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), no residual issues 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 Past Family History Family History Grandfather (Maternal) Family hx of colon cancer Other No family history of adverse response to anesthesia Past Surgical History Surgical History H/O shoulder surgery LEFT History of cardiac cath 1987 History of colonoscopy History of cystoscopy History of prostatectomy History of tooth extraction Hx of vasectomy [place] teeth removed Social History Smoking Status: Never smoker tobacco type: cigarettes and pipe Hx Alcohol Use: Yes Alcohol type: hard liquor alcohol intake frequency: 0-2 drinks per day Alcohol Intake Frequency Comment: 1 per day Hx Substance Use: No substance use type: does not use Physical Exam Vital Signs Last Vital Signs Temp 36.6 C 09/03/20 11:44 Pulse 57 L 09/03/20 11:44 Resp 18 09/03/20 11:44 BP 133/83 09/03/20 11:44 Pulse Ox 97 09/03/20 11:44 Testing Laboratory Results 09/03/20 02:42 09/03/20 02:42 PT 11.0 Seconds (9.0-12.0) 09/01/20 18:28 INR 1.1 (0.9-1.1) 09/01/20 18:28 APTT 27.8 Seconds (21.0-31.0) 09/01/20 18:28 Electrocardiogram Date: 09/03/20 Findings: + AFIB @ (60) Frequent ventricular-paced complexes, T wave abnormality, consider anterolateral ischemia Chest X-Ray Date: 09/01/20 Findings: + NAD Echocardiogram Date: 09/02/20 EF: 50-55% Afib, asymmetric LVH of septum and [place], LA severely dilated, RA mildly dilated, mild mitral regurg, mod-severe MR, moderate TR, systemic pulmonary pressure 53mmHg, ascending aorta of 4.6cm.
--- NOTE | 2020-09-03 14:44 | Ultrasound Report ---
US liver HISTORY: 75 years-old Male elevated LFTs acutely elevated LFTs COMPARISON: CT abdomen and pelvis 02/23/2020 TECHNIQUE: Multiple real-time sonographic images of the abdominal right upper quadrant were obtained assessing grayscale appearance and color flow FINDINGS: The pancreas is mostly obscured by bowel gas. Numerous hepatic cysts are noted measuring up to 3.8 x 3.4 x 3.2 cm. No cholelithiasis or sonographic evidence of acute cholecystitis. There are 2 nonmobile echogenic nonshadowing foci of the gallbladder measuring up to 4 mm suggestive of probable polyps. N ormal common bile duct, 5 mm. Mild prominence of the interpolar right kidney without discrete lesion identified. IMPRESSION: 1. No cholelithiasis or sonographic evidence of acute cholecystitis. 2. No biliary ductal dilation. 3. Hepatic cysts redemonstrated. 4. There are two gallbladder polyps which measure up to 4 mm. ACT 112: Negative or not required by law. The above report was generated using voice recognition software. It may contain grammatical, syntax o r spelling errors. Electronically signed by: Car Riddle M.D. 09/03/2020 2:43 PM
--- NOTE | 2020-09-04 06:12 | Electrocardiogram Report ---
Test Reason : Blood Pressure : / mmHG Vent. Rate : 060 BPM Atrial Rate : 277 BPM P-R Int : 000 ms QRS Dur : 086 ms QT Int : 438 ms P-R-T Axes : 000 080 -62 degrees QTc Int : 438 ms Atrial fibrillation with frequent ventricular-paced complexes T wave abnormality, consider anterolateral ischemia Abnormal ECG When compared with ECG of 02-SEP-2020 13:56, No significant change Confirmed by Diogenes Dickerson ([id number]) on 09/04/2020 6:11:47 AM Referred By: Venkat King Confirmed By:Diogenes Dickerson
[2020-09-04 06:13] LABS: Hematocrit (blood only) 39.6 % (42-52); Hemoglobin 13.5 g/dL (14.0-18.0); Mean Corpuscular Hemoglobin 32.1 pg (25-34); Mean Corpuscular Hgb Conc 34.1 g/dL (32-36); Mean Corpuscular Volume 94.1 fL (80-100); Mean Platelet Volume 10.4 fL (7.4-10.4); Platelet Count 163 K/uL (130-400); RDW Standard Deviation 48.2 fL (36.4-46.3); Red Blood Count 4.21 M/uL (4.7-6.1); White Blood Count 5.93 K/uL (4.8-10.8)
[2020-09-04] MEDS: APIXABAN 5 MG TABLET PO SCH (06:38)
[2020-09-04 06:47] LABS: Albumin Level 3.3 gm/dl (3.4-5.0); BUN Creatinine Ratio 19.6 (10-20); Calcium 8.7 mg/dl (8.5-10.1); Creatinine Clr Calc Pharmacy 57.5 ml/min; Est GFR (African American) 67.7 ml/min; Est GFR (Non-African American) 58.4 ml/min; Magnesium 2.3 mg/dl (1.8-2.4); Potassium 4.2 mmol/L (3.5-5.1)
[2020-09-04 06:49] LABS: Albumin Globulin Ratio 1.3 (0.9-2); Bilirubin Direct 0.2 mg/dl (0-0.2); Bilirubin,Total 0.8 mg/dl (0.2-1); Globulin 2.5 gm/dl (2.5-4.0); Total Protein 5.8 gm/dl (6.4-8.2)
--- NOTE | 2020-09-04 07:44 | History & Physical Bridge Note ---
Date of Service September 04, 2020 History & Physical Bridge Note I have examined the patient, reviewed the History & Physical and in the interval since the performance of the History & Physical I have noted the following changes of clinical significance: no changes noted. Pt's most recent dose of Eliquis was at 6:38 am. Informed consent was obtained. Patient elects to proceed with cardioversion. Case discussed with Dr Holbrook.
--- NOTE | 2020-09-04 08:02 | Anesthesiology Progress Note ---
Date of Service September 04, 2020 Anesthesia Post Procedure Vital Signs Vital Signs: Temp Pulse Resp BP Pulse Ox 09/04/20 02:49 37.0 C 55 L 18 114/73 96 09/04/20 00:02 37.0 C 62 22 124/82 97 09/03/20 19:11 36.6 C 58 L 20 125/76 96 09/03/20 11:44 36.6 C 57 L 18 133/83 97 Transfer of Care Handoff Completed per policy Notes Mental Status: alert / awake / arousable Patient Amnestic to Procedure: Yes Nausea / Vomiting: adequately controlled Pain: adequately controlled Airway Patency, RR, SpO2: stable & adequate BP & HR: stable & adequate Hydration State: stable & adequate Anesthetic Complications: no major complications apparent and Pt Satisfied with anesthetic care Notes: The patient is awake and comfortable. His vital signs are stable.
--- NOTE | 2020-09-04 08:03 | Cardioversion ---
Date of Service September 04, 2020 Electrical Cardioversion Rpt Electrical Cardioversion Report Date of Surgery September 04, 2020 Pre & Post Diagnosis Preprocedure diagnosis: Symptomatic atrial fibrillation Postprocedure diagnosis: Successful conversion to sinus rhythm Procedure Procedure: Direct-current cardioversion Procedure took place in room 201. The patient's vital signs including CO2 were monitored in the standard fashion. After informed consent was obtained and a timeout was performed the patient was sedated with the assistance of the anesthesia service receiving a total of 80 mg of IV lidocaine and 40 mg of IV propofol. The patient then underwent direct-current cardioversion receiving a single dose of 200 J of synchronized biphasic energy with successful conversion to sinus bradycardia. Patient tolerated the procedure well. Vital signs remained stable. No complications were observed. Roller Operator Freddy Edwards DO Ditch Rider none Estimated Blood Loss 0 Findings Consistent with Post-Op Diagnosis Anesthesia Type MAC
--- NOTE | 2020-09-04 08:11 | Cardiology Progress Note ---
Date of Service September 04, 2020 Assessment & Plan (1) Atrial fibrillation with slow ventricular response: (2) Apical variant hypertrophic cardiomyopathy: (3) Elevated troponin: (4) ICD (implantable cardioverter-defibrillator) in place: (5) Nonsustained ventricular tachycardia: (6) Elevated transaminase measurement: (1) Atrial fibrillation with slow ventricular response: -Patient with history of paroxysmal atrial fibrillation which was initially diagnosed at the time of thromboembolic stroke in January,. -Per device interrogation, he has lapsed into atrial fibrillation beginning on 08/15/2020, with noted poor exercise tolerance when he recently visited family at [facility] in [place], and culminated in progressive generalized weakness and dizziness prompting evaluation and findings of atrial fibrillation with slow ventricular response. -He has a single-chamber ICD, and the backup pacing rate was reprogrammed from 40 bpm to 50 bpm to allow heart rate support. -Patient underwent direct-current cardioversion receiving 200 J synchronized biphasic energy this morning with successful conversion to sinus rhythm. -Post cardioversion EKG performed 09/04/2182 and reviewed independently revealed sinus bradycardia at 55 bpm, with one paced ventricular complex. Diffuse low amplitude T wave inversions noted consistent with the patient's known chronic history of apical variant hypertrophic cardiomyopathy. The corrected QT interval is normal at 443 ms. -Continue sotalol 80 mg twice daily. -Continue Eliquis for stroke prophylaxis. -Patient to ambulate in the unit when he recovers from sedation and have his morning medications. He will be reassessed this afternoon with regards to discharge later today or ongoing observation and reassessment tomorrow. (2) Apical variant hypertrophic cardiomyopathy: -Longstanding history of apical variant hypertrophic cardiomyopathy. -Stable ejection fraction of 50 to 55% on echocardiogram performed 09/02/2020. -Severe left atrial enlargement noted -Moderate to severe mitral regurgitation noted, worse compared to previous -Moderate tricuspid regurgitation -Echodensity noted in the right atrium, perhaps anatomical variant (eustachian valve/Chiari network). He has been on chronic anticoagulation so I think the risk of this being a thrombus is low. He does not have any infectious symptoms or fever. Blood cultures obtained for completeness, no growth thus far (09/04/20). -Volume status stable. (3) Elevated troponin: -Mild, flat elevation in troponin, likely due to underlying cardiomyopathy. (4) ICD (implantable cardioverter-defibrillator) in place: -Stable function. -Will repeat diagnostics post cardioversion. (5) nonsustained ventricular tachycardia: -Per review of record, patient underwent a [facility] cardiac cath technologist as an outpatient in Aug, 2017, with findings of 18 episodes of nonsustained ventricular tachycardia, similar in morphology to what was observed this hospital stay on telemetry. --The patient's history of hypertrophic cardiomyopathy plus episodes of nonsustained VT, prompted implantation of the single-chamber ICD in December, ([facility] - Most recent episode was 8 beast in duration , 09/04/20, 12:16 am. I do not think the NSVT is related to the sotalol initiation, but is chronic. I am optimistic that the sotalol will actually reduce his episodes of VT. (6) Elevate transaminase level: -Elevation in AST, ALT. -New compared to outpatient laboratory studies performed in May,. -Could be from passive hepatic congestion in the setting of cardiomyopathy, and hemodynamic consequences of having been in atrial fibrillation for the last 2 weeks. -Normalized this am, 09/04/20. Hepatic US without pathologic findings. -OK to resume atorvastatin at discharge. Admission and Anticipated Discharge Date Admission Date: September 03, 2020 Subjective Patient seen in cardiology follow up prior to, during, and post cardiversion. Patient feels well. He denies chest pain or shortness of breath. Rate controlled AF noted overnight on telemetry an on EKG first thing this am. Patient underwent successful direct current cardioversion this am. Review of Systems Review of Systems: All systems reviewed & are unremarkable except as noted in HPI & below Physical Exam Physical Exam: Temp Pulse Resp BP Pulse Ox 37.0 C 55 L 18 114/73 96 09/04/20 02:49 09/04/20 02:49 09/04/20 02:49 09/04/20 02:49 09/04/20 02:49 Constitutional: WD/WN, vitals as above Respiratory: normal respiratory effort, lungs clear to auscultation Cardiovascular: RRR, no murmur, no edema Gastrointestinal (Abdomen): normal bowel sounds, soft, nontender, no hepatosplenomegaly Neurologic: PERRL, EOMI, accommodation nl, no face palsy, no dysarthria Results & Data ([facility]) Vital Signs (Past 12 Hours) Vital Signs Temp Pulse Resp BP Pulse Ox 09/04/20 02:49 37.0 C 55 L 18 114/73 96 09/04/20 00:02 37.0 C 62 22 124/82 97 Laboratory Results Cardiac Enzymes 09/04/20 Range/Units 05:26 AST 19 (15-37) U/L CBC 09/04/20 Range/Units 05:26 WBC 5.93 (4.8-10.8) K/uL RBC 4.21 L (4.7-6.1) M/uL Hgb 13.5 L (14.0-18.0) g/dL Hct 39.6 L (42-52) % Plt Count 163 (130-400) K/uL Comprehensive Metabolic Panel 09/04/20 Range/Units 05:26 Sodium 140 (136-145) mmol/L Potassium 4.2 (3.5-5.1) mmol/L Chloride 109 H (98-107) mmol/L Carbon Dioxide 26 (21-32) mmol/L BUN 24 H (7-18) mg/dl Creatinine 1.20 (0.6-1.4) mg/dl Glucose 82 (70-99) mg/dl Calcium 8.7 (8.5-10.1) mg/dl Direct Bilirubin 0.2 (0-0.2) mg/dl AST 19 (15-37) U/L ALT 70 (12-78) U/L Alkaline Phosphatase 58 (45-117) U/L Total Protein 5.8 L (6.4-8.2) gm/dl Albumin 3.3 L (3.4-5.0) gm/dl Intake and Output 09/03/20 09/04/20 09/04/20 22:59 06:59 14:59 Intake Total 180 / 825 Balance 180 / 825 Intake: Oral 180 / 825 Other: Other Intake Source Npo # Unmeasured Voids 1 Weight 82.5 kg 82.5 kg Weight Measurement Method Built in [facility] Patient Weight 09/05/20 06:59 Weight 82.5 kg
[2020-09-04] MEDS ORDERED: LIDOCAINE 2% 2 ML VIAL/AMP(20MG/ML) INFIL ONE (08:34)
[2020-09-04] MEDS ORDERED: PROPOFOL IV EMULSION 10 MG/ML 20 ML VIAL IV ONE (08:34)
[2020-09-04] MEDS: DOCUSATE SODIUM 100 MG CAP PO SCH (09:04)
[2020-09-04] MEDS: FOLIC ACID 1 MG TAB PO SCH (09:06)
[2020-09-04] MEDS: lisinopril 5 MG TAB PO SCH (09:07)
[2020-09-04] MEDS: MULTIVITAMIN TAB PO SCH (09:07)
[2020-09-04] MEDS: OXYBUTYNIN CHLORIDE XL 5 MG TABCR PO SCH (09:08)
[2020-09-04] MEDS: PANTOprazole 40 MG TAB PO SCH (09:08)
[2020-09-04] MEDS: SOTALOL HCL 80 MG TAB PO SCH (09:09)
--- NOTE | 2020-09-04 09:13 | Hospitalist Progress Note ---
Date of Service September 04, 2020 Assessment & Plan (1) Lightheadedness: Possibly multifactorial but already clinically improved. His pacemaker was adjusted and pt was Started on sotalol. Patient is also now status post cardioversion this morning. Feeling well. (2) Atrial fibrillation with slow ventricular response: Started on sotalol per cardiology. Patient to remain fully anticoagulated with Eliquis Echocardiogram ordered to reassess degree of mitral insufficiency and left atrial enlargement Echo - the reader is atrial fibrillation with controlled ventricular response. EF 50 to 55%. Asymmetric LV hypertrophy involving the septum and apex. Maximal wall thickness involving the septum is 1.8 cm. LA is severely dilated. RA is a mildly dilated. Mild AR. There is moderate to severe mitral regurg. There is moderate tricuspid regurg. The estimated systolic pulmonary pressure is 53 millimeters of mercury. Mild aortic root dilatation. The ascending aorta is moderately enlarged 4.6 cm. -Now s/p direct-current cardioversion w/ Dr. Edwards (09/04) NSVT - (09/03) Overnight reported about 15 beat at 2 AM, and then possibly 10 beats again at 4 AM, cardiology aware - this seems to be chronic, pls see full cardiology consult note for more details Likely discharge this afternoon, on sotalol 80 mg twice a day and to continue Eliquis. (3) Apical variant hypertrophic cardiomyopathy: s/p prophylactic ICD (4) ICD (implantable cardioverter-defibrillator) in place: (5) Elevated troponin: Workup per cardiology - believed to be Chronic troponin elevation consistent with hypertrophic cardiomyopathy. No evidence suggest acute coronary syndrome Elevated LFTs -likely secondary to his cardiac issues as above -Tickborne panel obtained on admission, but patient denies any history of tick bites -Reports no pain in right upper quadrant at this time -obtained liver ultrasound to further evaluate - IMPRESSION: 1. No cholelithiasis or sonographic evidence of acute cholecystitis. 2. No biliary ductal dilation. 3. Hepatic cysts redemonstrated. 4. There are two gallbladder polyps which measure up to 4 mm. -Trended LFTs -now normalized Admission and Anticipated Discharge Date Admission Date: September 03, 2020 Subjective Patient seen in follow-up of dizziness, A. fib with slow ventricular response Has a history of HOCM, and prophylactic ICD placement. Cardiology was consulted and made some changes to his device and started sotalol. He underwent cardioversion this morning Patient is feeling well. He is sitting up in bed, says that he was walking in the hallway, without any dizziness. Denies any palpitations chest pain shortness of breath. Review of Systems Review of Systems: All systems reviewed & are unremarkable except as noted in HPI & below Constitutional: no fever and no chills Respiratory: no cough and no dyspnea Cardiovascular: no chest pain and no palpitations Gastrointestinal: no abdominal pain, no nausea and no vomiting Physical Exam Physical Exam: CONSTITUTIONAL: WNWD, vitals as above, generally well- appearing EYES: normal conjunctivae, no scleral icterus ENT: external ear and nose normal, MMM RESPIRATORY: clear to auscultation bilaterally, no crackles, rales or wheezes, normal respiratory effort CARDIOVASCULAR: RRR, S1 and 2 heard without murmurs, gallops or rubs, no JVD, no peripheral edema GASTROINTESTINAL: normal bowel sounds, soft, nontender, no guarding MUSCULOSKELETAL: strength 5/5 throughout, head is normocephalic and atraumatic, neck supple, normal palpation of chest wall without tenderness SKIN: warm and dry, no rashes NEUROLOGIC: Alert oriented x3, answering questions appropriately, moving extremities without difficulty Results & Data Results & Data ([facility]) Vital Signs (Past 12 Hours) Vital Signs Temp Pulse Resp BP Pulse Ox 09/04/20 09:03 52 L 126/79 09/04/20 02:49 37.0 C 55 L 18 114/73 96 09/04/20 00:02 37.0 C 62 22 124/82 97 Laboratory Results 09/04/20 09/04/20 Range/Units 05:26 05:26 WBC 5.93 (4.8-10.8) K/uL RBC 4.21 L (4.7-6.1) M/uL Hgb 13.5 L (14.0-18.0) g/dL Hct 39.6 L (42-52) % MCV 94.1 (80-100) fL MCH 32.1 (25-34) pg MCHC 34.1 (32-36) g/dL RDW Std Deviation 48.2 H (36.4-46.3) fL RDW Coeff of Tip 14.0 (11.5-14.5) % Plt Count 163 (130-400) K/uL MPV 10.4 (7.4-10.4) fL Sodium 140 (136-145) mmol/L Potassium 4.2 (3.5-5.1) mmol/L Chloride 109 H (98-107) mmol/L Carbon Dioxide 26 (21-32) mmol/L Anion Gap 5.0 (3-11) BUN 24 H (7-18) mg/dl Creatinine 1.20 (0.6-1.4) mg/dl Est Cr Clr Drug Dosing 57.5 ml/min Est GFR ( Amer) 67.7 ml/min Est GFR (Non-Af Amer) 58.4 ml/min BUN/Creatinine Ratio 19.6 (10-20) Glucose 82 (70-99) mg/dl Calcium 8.7 (8.5-10.1) mg/dl Magnesium 2.3 (1.8-2.4) mg/dl Total Bilirubin 0.8 (0.2-1) mg/dl Direct Bilirubin 0.2 (0-0.2) mg/dl AST 19 (15-37) U/L ALT 70 (12-78) U/L Alkaline Phosphatase 58 (45-117) U/L Total Protein 5.8 L (6.4-8.2) gm/dl Albumin 3.3 L (3.4-5.0) gm/dl Globulin 2.5 (2.5-4.0) gm/dl Albumin/Globulin Ratio 1.3 (0.9-2) Medications Administered Current Inpatient Medications Acetaminophen (Acetaminophen 325 Mg Tab) 325 mg PO Q6H PRN PRN Reason: Mild Pain Stop: 10/01/20 20:46 Apixaban (Apixaban 5 Mg Tablet) 5 mg PO BID [facility] Stop: 10/01/20 22:36 Last Admin: 09/04/20 06:38 Dose: 5 mg Documented by: Atorvastatin Calcium (Atorvastatin 20 Mg Tab) [facility] Stop: 10/02/20 08:59 Last Admin: 09/02/20 08:05 Dose: 20 mg Documented by: Docusate Sodium (Docusate Sodium 100 Mg Cap) 100 mg PO QAM [facility] Stop: 10/02/20 08:59 Last Admin: 09/04/20 09:04 Dose: Not Given Documented by: Folic Acid (Folic Acid 1 Mg Tab) [facility] Stop: 10/02/20 08:59 Last Admin: 09/04/20 09:06 Dose: 2 mg Documented by: Promethazine HCl 12.5 mg/ (Sodium Chloride) 50.5 mls @ 202 mls/hr IV Q6H PRN PRN Reason: Nausea And Vomiting Stop: 10/01/20 22:36 Lisinopril (Lisinopril 5 Mg Tab) 5 mg PO DAILY [facility] Stop: 10/02/20 08:59 Last Admin: 09/04/20 09:07 Dose: 5 mg Documented by: Multivitamins (Multivitamin Tab) 1 tab PO QAM [facility] Stop: 10/02/20 08:59 Last Admin: 09/04/20 09:07 Dose: 1 tab Documented by: Oxybutynin Chloride (Oxybutynin Chloride Xl 5 Mg Tabcr) 10 mg PO DAILY [facility] Stop: 10/02/20 08:59 Last Admin: 09/04/20 09:08 Dose: 10 mg Documented by: Oxycodone HCl (Oxycodone Hcl Ir 5 Mg Tab (Immediate Release)) 5 mg PO Q4H PRN PRN Reason: Pain Stop: 09/15/20 22:36 Pantoprazole Sodium (Pantoprazole 40 Mg Tab) 40 mg PO BID [facility] Stop: 10/01/20 22:36 Last Admin: 09/04/20 09:08 Dose: 40 mg Documented by: Sotalol HCl (Sotalol Hcl 80 Mg Tab) 80 mg PO BID [facility] Stop: 10/02/20 20:59 Last Admin: 09/04/20 09:09 Dose: 80 mg Documented by:
--- NOTE | 2020-09-04 10:23 | Communication Note ---
Date of Service: September 04, 2020 ICD diagnostics reviewed personally and reviewed with Rep. Normal function post cardioversion. Pt remains in SB in the 50s.
--- NOTE | 2020-09-04 13:14 | Discharge Summary ---
Date of Service September 04, 2020 Admission HPI Per Admitting Provider History obtained from patient and records. Medical history significant for PAF on Eliquis, history of hypertrophic nonobstructive cardiomyopathy, history NSVT, hx prophylactic ICD, hypertension, hyperlipidemia, moderate MR, history thromboembolic CVA, prostate cancer status post surgery/radiation, chronic anemia (baseline hemoglobin 13), past tobacco abuse. Last confinement [facility] January 2020 acute right frontoparietal embolic stroke presenting as transient left facial droop and dysarthria. No TPA, no vascular intervention required for stroke. Transient A. fib noted during confinement. Patient discharged on Eliquis. 8 months history of intermittent episodes of lightheadedness which patient thinks might be related to movement. About 2 episodes per month as per patient. Occasional generalized weakness. Denies depression. Denies chest pain, cough, palpitations, shortness of breath, abdominal pain, fluid retention. No spinning sensation, no headache. Patient has to stand steady initially on getting up for fear of falling. Ticks where patient lives although patient does not recall recent tick bites. The last 2 weeks patient noted almost daily symptoms of lightheadedness and generalized weakness. No recent changes in medication regimen as per patient. No recent COVID-19 contacts. Patient seen at PCP's office today. Cardiac rate 50s. EKG showed A. fib with slow ventricular response with T wave abnormalities inferior and anterior leads as per documentation. Patient sent to the ER for evaluation. Initial SBP upon arrival at the ER 160s. Medical History as above Surgical History : Hemorrhoidectomy, ICD, prostatectomy with pelvic lymphadenectomy, shoulder surgery Family History : Colon cancer, heart disease, stroke Personal/Social history : Past tobacco abuse, daily alcohol intake (denies abuse), retired from [employer] service Admission Exam Per Admitting Provider GENERAL: Comfortable, pleasant, no respiratory distress SKIN: Normal color, warm HEENT: [place] palpebral conjunctivae, no ptosis, dry buccal mucosa NECK : Supple, no tenderness CHEST : CTA, no tenderness HEART : Bradycardic, no obvious murmurs ABDOMEN: No distention, nontender EXTREMITIES : No LE swelling/tenderness, no other conspicuous deformities noted NEUROLOGIC : Coherent, no facial asymmetry, no other gross focality Principal Diagnosis Dizziness secondary to recurrent atrial fibrillation, atrial fibrillation with slow ventricular response, now status post cardioversion Discharge Exam CONSTITUTIONAL: WNWD, vitals as above, generally well-appearing EYES: normal conjunctivae, no scleral icterus ENT: external ear and nose normal, MMM RESPIRATORY: clear to auscultation bilaterally, no crackles, rales or wheezes, normal respiratory effort CARDIOVASCULAR: RRR, S1 and 2 heard without murmurs, gallops or rubs, no JVD, no peripheral edema GASTROINTESTINAL: normal bowel sounds, soft, nontender, no guarding MUSCULOSKELETAL: strength 5/5 throughout, head is normocephalic and atraumatic, neck supple, normal palpation of chest wall without tenderness SKIN: warm and dry, no rashes NEUROLOGIC: Alert oriented x3, answering questions appropriately, moving extr emities without difficulty Discharge Data Allergies Allergy/AdvReac Type Severity Reaction Status Date / Time No Known Allergies Allergy Verified 09/01/20 17:19 Consultations 09/01/20 19:25 ED Decision to Admit Stat 09/01/20 22:37 Consult Cardiology Routine 09/03/20 11:22 Consult Anesthesiology Routine Ordered Studies 09/03/20 11:38 US liver Routine IMPRESSION: 1. No cholelithiasis or sonographic evidence of acute cholecystitis. 2. No biliary ductal dilation. 3. Hepatic cysts redemonstrated. 4. There are two gallbladder polyps which measure up to 4 mm. Hospital Course (1) Lightheadedness: Possibly multifactorial but already clinically improved. His pacemaker was adjusted and pt was Started on sotalol. Patient is also now status post cardioversion this morning. Feeling well. (2) Atrial fibrillation with slow ventricular response: Started on sotalol per cardiology. Patient to remain fully anticoagulated with Eliquis Echocardiogram ordered to reassess degree of mitral insufficiency and left atrial enlargement Echo - the reader is atrial fibrillation with controlled ventricular response. EF 50 to 55%. Asymmetric LV hypertrophy involving the septum and apex. Maximal wall thickness involving the septum is 1.8 cm. LA is severely dilated. RA is a mildly dilated. Mild AR. There is moderate to severe mitral regurg. There is moderate tricuspid regurg. The estimated systolic pulmonary pressure is 53 millimeters of mercury. Mild aortic root dilatation. The ascending aorta is moderately enlarged 4.6 cm. -Now s/p direct-current cardioversion w/ Dr. Edwards (09/04) NSVT - (09/03) Overnight reported about 15 beat at 2 AM, and then possibly 10 beats again at 4 AM, cardiology aware - this seems to be chronic, pls see full cardiology consult note for more details Likely discharge this afternoon, on sotalol 80 mg twice a day and to continue Eliquis. Metoprolol was stopped. (3) Apical variant hypertrophic cardiomyopathy: s/p prophylactic ICD (4) ICD (implantable cardioverter-defibrillator) in place: (5) Elevated troponin: Workup per cardiology - believed to be Chronic troponin elevation consistent with hypertrophic cardiomyopathy. No evidence suggest acute coronary syndrome Elevated LFTs -likely secondary to his cardiac issues as above -Tickborne panel obtained on admission, but patient denies any history of tick bites -Reports no pain in right upper quadrant at this time -obtained liver ultrasound to further evaluate - IMPRESSION: 1. No cholelithiasis or sonographic evidence of acute cholecystitis. 2. No biliary ductal dilation. 3. Hepatic cysts redemonstrated. 4. There are two gallbladder polyps which measure up to 4 mm. -Trended LFTs -now normalized Total Time Total Time Spent Total Time Spent (In Minutes): 40 Total Time Includes: Examination of the Patient, Discharge Planning, Medication Reconciliation and Communication With Other Providers Discharge Plan Discharge Items Patient Disposition: Home - Self-Care Reason For Visit: RECURRENT AF Discharge Diagnosis: Dizziness secondary to recurrent atrial fibrillation, atrial fibrillation with slow ventricular response, now status post cardioversion Activity: Per Instructions section Non-emergency contact: Primary Care Provider and Wine Steward Call non-emergency contact if: you have any medication questions and your symptoms worsen Follow-up/Referrals: Chucky Kim DO [Primary Care Provider] - Diet: Heart Healthy Addtl Attending Provider Instructions: You were started on a new medication, sotalol, 80 mg twice a day. 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 Stop taking your metoprolol. Recommend to follow-up with your family doctor in 1 week. Pending Studies at Discharge: No Stand-Alone Forms: My SendMe, Smoking Cessation Medications and DC Order Prescriptions: New sotalol 80 mg Tablet 80 mg PO BID 30 Days Qty: 60 RF: 0 Continued multivitamin Tablet 1 tab PO QAM RF: 0 atorvastatin 20 mg tablet 20 mg PO QAM RF: 0 docusate sodium 100 mg Capsule 100 mg PO QAM RF: 0 omeprazole 20 mg capsule,delayed release(DR/EC) 20 mg PO BID RF: 0 folic acid 1 mg tablet 2 mg PO QAM RF: 0 calcium citrate 200 mg (950 mg) Tablet 200 mg PO QAM RF: 0 Eliquis 5 mg tablet 5 mg PO BID RF: 0 fiber Tablet 2 tab PO QAM RF: 0 magnesium oxide 400 mg magnesium Capsule 400 mg PO QAM RF: 0 oxybutynin chloride 10 mg tablet extended release 24hr 10 mg PO DAILY RF: 0 lisinopril 5 mg tablet 5 mg PO DAILY RF: 0 Discontinued metoprolol succinate [Toprol XL] 25 mg tablet extended release 24 hr 50 mg PO QAM RF: 0 Discharge Orders: Discharge Order (Routine); Ordered 09/04/20 Ordered By: Moise Maldonado Admission Data Admit Date/Time: 09/03/20 06:23 Attending Provider: Moise Maldonado Admit Provider: Ilya Spencer Primary Care Provider: Chucky Kim Other Providers: Ilya Spencer ; Lars Michaels ; Freddy Edwards ; Venkat King ; Vinayak Fernandes ; Sukumar Luque ; Florin Farrar ; Yana Todd ; Melissa Bennett ; Debbi Rawls ; Cooper Luis ; Tosha Ramírez ; Lydia Rodriguez
--- NOTE | 2020-09-04 23:27 | Electrocardiogram Report ---
Test Reason : Blood Pressure : / mmHG Vent. Rate : 055 BPM Atrial Rate : 300 BPM P-R Int : 000 ms QRS Dur : 094 ms QT Int : 472 ms P-R-T Axes : 000 070 -57 degrees QTc Int : 451 ms Atrial fibrillation with intermittent Ventricular pacing T wave abnormality, consider anterolateral ischemia Abnormal ECG When compared with ECG of 03-SEP-2020 05:59, No significant change Confirmed by Diogenes Dickerson ([id number]) on 09/04/2020 11:27:35 PM Referred By: Venkat King Confirmed By:Diogenes Dickerson
--- NOTE | 2020-09-04 23:36 | Electrocardiogram Report ---
Test Reason : Blood Pressure : / mmHG Vent. Rate : 055 BPM Atrial Rate : 055 BPM P-R Int : 176 ms QRS Dur : 092 ms QT Int : 464 ms P-R-T Axes : 036 064 -52 degrees QTc Int : 443 ms Sinus bradycardia with occasional ventricular-paced complexes and Premature atrial complexes Possible Lateral infarct , age undetermined T wave abnormality, consider inferior ischemia T wave abnormality, consider anterior ischemia Abnormal ECG When compared with ECG of 04-SEP-2020 05:53, Sinus rhythm has replaced Atrial fibrillation Confirmed by Diogenes Dickerson ([id number]) on 09/04/2020 11:35:55 PM Referred By: Venkat King Confirmed By:Diogenes Dickerson
== END 2020-09-04 13:57 | disposition home or self-care (01) | DRG 310 ==
LOC: ED 16:59 → 2E 16:59 → SUATTDRO 20:12 → 2E 21:58